=== PATIENT | female | born 1965 | race Caucasian/White ===

== ENCOUNTER 2020-08-28 09:52 | Inpatient (IN) | payer OTHER, MEDICARE ==
[~2020-08-28] VITALS: Ht 165.1 cm; Wt 86.2 kg
[2020-08-28 10:48] LABS: BASOPHILS % (AUTO) 0.7 % (0.0-2.0); EOSINOPHILS % (AUTO) 2.7 % (0.0-3.0); HEMATOCRIT 47.1 % (37.0-47.0); HEMOGLOBIN 15.5 G/DL (12.0-16.0); LYMPHOCYTES % (AUTO) 31.4 % (20.0-45.0); MEAN CORPUSCULAR VOLUME 92 FL (80-99); MONOCYTES % (AUTO) 4.8 % (1.0-10.0); NEUTROPHILS % (AUTO) 60.3 % (45.0-75.0); PLATELET COUNT 180 K/UL (150-450); RED BLOOD COUNT 5.12 M/UL (4.20-5.40); WHITE BLOOD COUNT 8.1 K/UL (4.8-10.8)
[2020-08-28 10:55] LABS: ANION GAP 11 mmol/L (5-15); BLOOD UREA NITROGEN 11 mg/dL (7-18); CALCIUM 9.9 MG/DL (8.5-10.1); CARBON DIOXIDE 23 MMOL/L (21-32); CHLORIDE 98 MMOL/L (98-107); CREATININE 0.8 MG/DL (0.55-1.30); INR 1.3 (0.9-1.1); SODIUM 132 MMOL/L (136-145)
[2020-08-28 11:00] LABS: ALANINE AMINOTRANSFERASE 35 U/L (12-78); ALKALINE PHOSPHATASE 83 U/L (46-116); ASPARTATE AMINO TRANSFERASE 31 U/L (15-37)
--- NOTE | 2020-08-28 11:06 | Emergency Room Report ---
History of Present Illness General Chief Complaint: Abdominal Pain Source: Patient Present Illness HPI 54-year-old female referred to ED for evaluation. Presenting with abdominal pain. History of BC IR pouch x25 years. Has been self intubating normally 3 times a day but states that for the last several days she has been requiring 15+ intubations a day. Concerned about a bowel obstruction. Pain is dull, 7 out of 10, nonradiating. Denies fevers or chills. Denies nausea or vomiting. No other aggravating relieving factors. 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: No Patient History Past Medical History: none Past Surgical History: other - BCIR pouch Pertinent Family History: none Social History: Denies: smoking, alcohol use, drug use Now: No Immunizations: UTD Reviewed Nursing Documentation: PMH: Agreed; PSxH: Agreed Review of Systems All Other Systems: negative except mentioned in HPI Physical Exam Vital Signs Date Time Temp Pulse Resp B/P (MAP) Pulse Ox O2 Delivery O2 Flow Rate FiO2 08/28/20 10:00 98.2 82 18 160/90 (113) 98 Room Air Sp02 EP Interpretation: reviewed, normal General Appearance: no apparent distress, alert, GCS 15, non-toxic Head: normocephalic, atraumatic Eyes: bilateral eye normal inspection, bilateral eye PERRL ENT: hearing grossly normal, normal pharynx, no angioedema, normal voice Neck: full range of motion, supple/symm/no masses Respiratory: chest non-tender, lungs clear, normal breath sounds, speaking full sentences Cardiovascular #1: regular rate, rhythm, no edema Cardiovascular #2: 2+ carotid (R), 2+ carotid (L), 2+ radial (R), 2+ radial (L), 2+ dorsalis pedis (R), 2+ dorsalis pedis (L) Gastrointestinal: normal bowel sounds, soft, non-distended, no guarding, no rebound, other - BCIR pouch RLQ pink patent Rectal: deferred Genitourinary: normal inspection, no CVA tenderness Musculoskeletal: back normal, normal range of motion, gait/station normal, non- tender Neurologic: alert, motor strength/tone normal, oriented x3, sensory intact, responsive, speech normal Psychiatric: judgement/insight normal, memory normal, mood/affect normal, no suicidal/homicidal ideation Reflexes: 3+ bicep (R), 3+ bicep (L), 3+ tricep (R), 3+ tricep (L), 3+ knee (R), 3+ knee (L) Skin: no rash Lymphatic: no adenopathy Medical Decision Making Diagnostic Impression: Primary Impression: Abdominal pain Qualified Codes: R10.84 - Generalized abdominal pain ER Course Hospital Course 54-year-old female presents with abdominal pain. History of BCIR pouch Differential diagnoses include: BPH, cystitis, pyelonephritis, kidney stone Clinical course Patient placed on stretcher. match up person. After initial history and physical I ordered labs, IV fluids, UA Labs - no leukocytosis, Hb/Hct stable. electrolytes ok rapid COVID negative Case discussed with Dr. Mccain and he agreed to accept the patient to his service for further care and support I feel this is a highly complex case requiring extensive working including EKG/Rhythm strip, Xray/CT/US, Blood/urine lab work, repeat exams while in ED, and administration of strong opiates/narcotics for pain control, admission to hospital or close patient follow up. Diagnosis - abdominal pain Patient admitted to floor in serious condition Laboratory Tests Test 08/28/20 10:15 08/28/20 11:30 White Blood Count 8.1 K/UL (4.8-10.8) Red Blood Count 5.12 M/UL (4.20-5.40) Hemoglobin 15.5 G/DL (12.0-16.0) Hematocrit 47.1 % (37.0-47.0) H Mean Corpuscular Volume 92 FL (80-99) Mean Corpuscular Hemoglobin 30.2 PG (27.0-31.0) Mean Corpuscular Hemoglobin Concent 32.8 G/DL (32.0-36.0) Red Cell Distribution Width 13.0 % (11.6-14.8) Platelet Count 180 K/UL (150-450) Mean Platelet Volume 7.7 FL (6.5-10.1) Neutrophils (%) (Auto) 60.3 % (45.0-75.0) Lymphocytes (%) (Auto) 31.4 % (20.0-45.0) Monocytes (%) (Auto) 4.8 % (1.0-10.0) Eosinophils (%) (Auto) 2.7 % (0.0-3.0) Basophils (%) (Auto) 0.7 % (0.0-2.0) Prothrombin Time 14.3 SEC (9.30-11.50) H Prothromb Time International Ratio 1.3 (0.9-1.1) H Activated Partial Thromboplast Time 23 SEC (23-33) Sodium Level 132 MMOL/L (136-145) L Potassium Level 4.0 MMOL/L (3.5-5.1) Chloride Level 98 MMOL/L (98-107) Carbon Dioxide Level 23 MMOL/L (21-32) Anion Gap 11 mmol/L (5-15) Blood Urea Nitrogen 11 mg/dL (7-18) Creatinine 0.8 MG/DL (0.55-1.30) Estimat Glomerular Filtration Rate > 60 mL/min (>60) Glucose Level 178 MG/DL (74-106) H Calcium Level 9.9 MG/DL (8.5-10.1) Total Bilirubin 1.0 MG/DL (0.2-1.0) Aspartate Amino Transf (AST/SGOT) 31 U/L (15-37) Alanine Aminotransferase (ALT/SGPT) 35 U/L (12-78) Alkaline Phosphatase 83 U/L (46-116) Total Protein 8.2 G/DL (6.4-8.2) Albumin 4.0 G/DL (3.4-5.0) Globulin 4.2 g/dL Albumin/Globulin Ratio 1.0 (1.0-2.7) Lipase 220 U/L (73-393) Urine Color Pending Urine Appearance Pending Urine pH Pending Urine Specific [place] Pending Urine Protein Pending Urine Glucose (UA) Pending Urine Ketones Pending Urine Blood Pending Urine Nitrite Pending Urine Bilirubin Pending Urine Urobilinogen Pending Urine Leukocyte Esterase Pending Last Vital Signs Date Time Temp Pulse Resp B/P (MAP) Pulse Ox O2 Delivery O2 Flow Rate FiO2 08/28/20 10:14 78 18 08/28/20 10:00 98.2 160/90 (113) 98 Room Air Status: improved Disposition: ADMITTED INPATIENT Condition: Serious Referrals: Fidel Mccain MD (PCP) Sergio Thomas MD Aug 28, 2020 11:06
[2020-08-28 11:07] VITALS: BP 152/76
--- NOTE | 2020-08-28 11:41 | NUR ---
report given to adrian patient is to be transferd to room 305
[2020-08-28 11:59] LABS: APPEARANCE,URINE CLEAR; BILIRUBIN, URINE NEGATIVE (NEGATIVE); COLOR,URINE PALE YELLOW; GLUCOSE, URINE (UA) NEGATIVE (NEGATIVE); KETONES,URINE 2+ (NEGATIVE); LEUKOCYTE ESTERASE ,URINE NEGATIVE (NEGATIVE); NITRITE,URINE NEGATIVE (NEGATIVE); PH,URINE 5 (4.5-8.0); PROTEIN,URINE NEGATIVE (NEGATIVE); UROBILINOGEN,URINE NORMAL MG/DL (0.0-1.0)
--- NOTE | 2020-08-28 12:09 | NUR ---
CASE MANAGEMENT:INITIAL REVIEW 54 YR OLD FEMALE FROM HOME CC;ABDOMINAL PAIN PSxHx;BCIR POUCH X25 YRS SI;ABDOMINAL PAIN 98.2 82 18 160/90 95% ON RA NA- 132 GLU+ 178 PT+ 14.3 INR+ 1.3 COVID RAPID ~ NEGATIVE TYPE AND CROSS IS;IVF NS BOLUS ADMITTED TO MED SURG MED SURG STATUS DCP;PENDING HOSPITAL STAY
--- NOTE | 2020-08-28 12:15 | NUR ---
NURSE NOTES: Received report from Dulce LEE, patent a/a/o x4 laying in bed with no signs of distress or other issues at this time. IV on the right wrist gauge #22. RN will enter new order and carry on as indicated by Dr. Mccain. I will f/u as needed.
[2020-08-28] MEDS ORDERED: Phytonadione 10 MG in D5W 55 ML IVPB SCH (12:32)
[2020-08-28] MEDS ORDERED: Heparin1,000 units/500ml Premix(Conc:2 units/ml) IV PRN (12:42)
[2020-08-28] MEDS ORDERED: Lidocaine 1% Plain 30 ml INJ PRN (12:42)
[2020-08-28] MEDS ORDERED: Omnipaque-300 100ml vial INJ PRN (12:45)
[2020-08-28] MEDS ORDERED: PROGESTERONE200 MG PO (14:48)
[2020-08-28] MEDS ORDERED: ARMOUR THYROID30 MG ORAL (14:48)
[2020-08-28] MEDS ORDERED: CLONAZEPAM1 MG PO (14:48)
[2020-08-28] MEDS ORDERED: BELSOMRA15 MG PO (14:48)
--- NOTE | 2020-08-28 14:53 | NUR ---
RADIOLOGY DEPT., CHEST X-RAY DONE.-P.DYE
--- NOTE | 2020-08-28 15:04 | General Progress Note ---
Progress Note Progress Note H&P dictated. Admitted from ER with recent history of left side abdominal pain with nausea with meals, improved with liquid diet but pain persists. Has undergone multiple abdominal operations including proctocolectomy for Ulcerative Colitis,and creation of a Renee Continent Ileostomy 25 years ago with a revision 10 years ago. Usually intubates to evacuate stool 3 x daily but now feels ongoing pressure/pain in abdomen so intubates 10-15 times daily with often no output of stool or gas. Also S/P sleeve gastrectomy (5' 4" and was 228 lbs now 160 lbs) and in July 2019 cholecystectomy Abdomen mildly distended, long midline scar, Renee pouch stoma low in RLQ with reducible 4x5cm parastomal hernia just superior to stoma Labs OK but Na 132 and PT 14.3 - will give Vit K 10mg IV Imp: Partial Small Bowel Obstruction R/O stenosis of afferent bowel and Renee pouch, R/O adhesions with partial SBO Plan: Insert indwelling catheter to Renee Pouch to continuous drainage NPO, IV fluids STAT CT scan abd+pelvis with oval and IV contrast Will need Renee continent ileostomy pouch endoscopy, possible pouchogram XRay, and likely laparotomy to relieve her partial obstruction Fidel Mccain MD Aug 28, 2020 15:04
--- NOTE | 2020-08-28 15:24 | Diagnostic Imaging Report ---
Indication: Cough Technique: One view of the chest Comparison: none Findings: Lungs and pleural spaces are clear. Heart size is normal. Impression: No acute process
[2020-08-28 16:00] VITALS: BP 141/90
[2020-08-28] MEDS: D5 1/2NS w/KCl 20mEq 1,000 ML IV SCH (16:38)
--- NOTE | 2020-08-28 16:50 | Diagnostic Imaging Report ---
Clinical Indication: Abdominal pain Technique: Patient ingested oral contrast. IV administration nonionic contrast. Venous phase spiral acquisition obtained through the abdomen and pelvis. Multiplanar reconstructions were generated. Total dose length product 408 mGycm. CTDIvol(s) 7 mGy. Dose reduction achieved using automated exposure control Comparison: none Findings: There is a right lower quadrant continent ileostomy. Contrast is seen within the ileostomy pouch as well as within the catheter. The catheter is positioned well, deep within the ileostomy, tip well beyond the nipple. No small bowel distention. No free or loculated intraperitoneal gas or fluid is evident. Patient is status post near total colectomy, with a small Martha pouch still present. The patient is status post gastric surgery, which appears to be prior gastric sleeve surgery. There is mild wall thickening of the distal esophagus. There is suggestion of a small hiatal hernia. The liver is unremarkable. The gallbladder has been removed. There is no biliary ductal dilatation. The pancreas is unremarkable. Spleen demonstrates a subcentimeter low attenuation lesion centrally. The adrenals are unremarkable. The kidneys are unremarkable. No renal or ureteral calculi, hydronephrosis, nor hydroureter. The bladder is unremarkable. Prominent nodes are seen in the mesenteric root inferiorly There is a cystic mass in the pelvis, overall dimensions approximately 8.1 x 4.6 x 5.1 cm. This consists of 2 larger cysts by a septation and a smaller cyst. Wall is mostly imperceptible, but some portion of a perceptible wall is seen at the junction of the 2 larger cysts. The uterus is absent and there is no evidence of a left ovary. The included lung bases are clear. The bones are unremarkable Impression: Postsurgical changes, as described, with evidence of near total colectomy and right lower quadrant continent ileostomy. No evidence of bowel obstruction, ileostomy dysfunction, or abscess Cystic mass within the right side of the pelvis, possibly a right ovarian cystic lesion. The possibility of cystic neoplasm should be considered. Alternatively, this could represent a postoperative process such as a lymphocele. Further evaluation with ultrasound and gynecological evaluation is recommended if this has not been worked up previously. Mild esophageal wall thickening, could indicate esophagitis. There is also small hiatal hernia Other postsurgical changes as described, including prior cholecystectomy, hysterectomy, and gastric sleeve surgery Prominent mesenteric root nodes, nonspecific Findings discussed by phone with Dr. Schiller at the time of interpretation The CT scanner at [facility] is accredited by the [employer] and the scans are performed using protocols designed to limit radiation exposure to as low as reasonably achievable to attain images of sufficient resolution adequate for diagnostic evaluation.
[2020-08-28] MEDS ORDERED: HYDROmorphone 1mg/ml Carpuject IVP PRN (17:15)
[2020-08-28] MEDS ORDERED: HYDROcodone/Acetamin 5/325 tab ORAL PRN (17:15)
[2020-08-28] MEDS ORDERED: LORazepam 1mg tab ORAL PRN (17:15)
[2020-08-28] MEDS ORDERED: LORazepam 1mg tab SL PRN (17:15)
--- NOTE | 2020-08-28 17:40 | NUR ---
NURSE HAND-OFF: Important Events on Shift: new admit Patient Status: stable/ full code Diet: NPO X ice chips and meds Pending Orders: Pending Results/Labs:am labs Pending MD notification:[] Latest Vital Signs: Temperature 98.2 , Pulse 75 , B/P 141 /90 , Respiratory Rate 18 , O2 SAT 97 , Room Air, O2 Flow Rate . Vital Sign Comment: stable Latest Dumont Fall Score: 20 Fall Risk: Low Risk Safety Measures: Call light Within Reach, Bed Alarm Zone 1, Side Rails Side Rails x2, Bed position Low and Locked. Fall Precautions: steady gait Patient Fall Education Report given to Alexys LEE, patient in stable condition. - pt was able to ambulate with steady gait - ileostomy draining to gravity, total put put during my shift 550-60= 490 - CT abd done - CXR done - EKG done - UA done pending PICC line placement and postendoscopy in the AM - consent signed for PICC line placement
[2020-08-28] MEDS: HYDROmorphone 1mg/ml Carpuject SUBQ PRN ×2 (17:51→22:50)
[2020-08-28 20:00] VITALS: BP 149/82
--- NOTE | 2020-08-28 20:00 | NUR ---
NURSE NOTES: Patient in bed, awake, alert x 4. Bed in low and locked position. Provided safe environment. Kept clean and comfortable. Iv site noted, iv fluid is infusing as ordered. Skin is warm and dry to touch. No complaint of pain or discomfort at the moment. Patient is ambulatory. nothing by mouth except ice chips and medications. Abdomen is soft and non distended. Respiration is even and unlabored, room air. BCIR, will be flushed, intact. Call light is at bedside. Will continue plan of care.
[2020-08-28] MEDS: Dyna-Hex 2% Top Sol 2oz TOPIC SCH (20:36)
--- NOTE | 2020-08-28 21:00 | NUR ---
NURSE NOTES: Patient complained of nausea, given PRN medication as ordered. Will follow up.
[2020-08-28 23:33] VITALS: BP 117/72
[2020-08-29] MEDS: D5 1/2NS w/KCl 20mEq 1,000 ML IV SCH ×3 (00:02→20:26)
[2020-08-29] MEDS: HYDROmorphone 1mg/ml Carpuject SUBQ PRN (03:35)
--- NOTE | 2020-08-29 03:48 | NUR ---
NURSE NOTES: Patient complained of pain and nausea, given PRN medication as ordered. Will reassess patient. Call light is at bedside. Ileo flushed. Iv site noted, intact, iv fluid is infusing as ordered.
[2020-08-29 03:50] VITALS: BP 148/82
[2020-08-29 05:45] LABS: EOSINOPHILS % (AUTO) 2.8 % (0.0-3.0); HEMATOCRIT 40.3 % (37.0-47.0); HEMOGLOBIN 13.4 G/DL (12.0-16.0); LYMPHOCYTES % (AUTO) 30.1 % (20.0-45.0); MEAN CORPUSCULAR VOLUME 92 FL (80-99); PLATELET COUNT 312 K/UL (150-450); RED BLOOD COUNT 4.36 M/UL (4.20-5.40); WHITE BLOOD COUNT 7.1 K/UL (4.8-10.8)
[2020-08-29 05:58] LABS: INR 0.9 (0.9-1.1)
[2020-08-29 06:30] LABS: ALANINE AMINOTRANSFERASE 32 U/L (12-78); ALBUMIN 3.6 G/DL (3.4-5.0); ALBUMIN/GLOBULIN RATIO 0.9 (1.0-2.7); ALKALINE PHOSPHATASE 78 U/L (46-116); ANION GAP 7 mmol/L (5-15); ASPARTATE AMINO TRANSFERASE 22 U/L (15-37); BILIRUBIN,TOTAL 0.8 MG/DL (0.2-1.0); BLOOD UREA NITROGEN 9 mg/dL (7-18); CALCIUM 8.8 MG/DL (8.5-10.1); CARBON DIOXIDE 26 MMOL/L (21-32); CHLORIDE 100 MMOL/L (98-107); CREATININE 0.9 MG/DL (0.55-1.30); FERRITIN 175 NG/ML (8-388); POTASSIUM 4.1 MMOL/L (3.5-5.1); SODIUM 133 MMOL/L (136-145)
[2020-08-29 06:45] LABS: % IRON SATURATION 29 % (15-50); IRON 98 ug/dL (50-175); TOTAL IRON BINDING CAPACITY 333 ug/dL (250-450)
--- NOTE | 2020-08-29 07:30 | NUR ---
NURSE NOTES: Patient lying in bed awake. Complain of nausea and will administer medication as ordered. IV dressing intact and dry. Ileostomy catheter patent and draining well. Bed lowest position and side rails up. Call light within reach. Will continue to monitor.
[2020-08-29 08:00] VITALS: BP 154/91
[2020-08-29] MEDS ORDERED: PCA HYDROmorphone 1mg/ml 30 ML IV PRN (08:15)
[2020-08-29] MEDS ORDERED: Rate Change PCA 1 Each MISC PRN (08:15)
[2020-08-29] MEDS ORDERED: DiphenhydrAMINE 50mg/ml Inj IVP PRN (08:15)
[2020-08-29] MEDS ORDERED: PCA Education Pamphlet MISC ONE (08:15)
[2020-08-29] MEDS ORDERED: Naloxone 0.4mg/ml Inj IVP PRN (08:15)
--- NOTE | 2020-08-29 08:20 | General Progress Note ---
Progress Note Progress Note AVSS Continued abdominal pain requiring Dilaudid SQ overnight with nausea Abdomen soft, Renee pouch indwelling catheter is draining well Urine 1300 BCIR ileo 810 (contrast from CT scan) Hgb 13.4 PT now normal 10.5 Iron 98 Ferritin 175 B12 and folate okay Albumin 3.6 CT scan reveals right sided cystic pelvic mass about 8x4x5 cm. "incidental finding" per radiologist Absent uterus and left ovary - right not seen - she has had SUJATA + BSO in the past. Imp: Abdominal pain and nausea with meals ? etiology Cystic pelvic mass R/O neoplasm vs. loculated post-op fluid from multiple operations or lymphocele Plan: Ultrasound: abdomen, pelvis and trans-vaginal Renee pouch endoscopy today (no anesthesia) Pouchogram XRay with retrograde small bowel series Dual lumen PICC line today (very poor venous access) dilaudid SMT TECHNICIAN demand dosing only continue NPO and continuous drainage of Renee pouch Fidel Mccain MD Aug 29, 2020 08:20
[2020-08-29] MEDS ORDERED: SPIRONOLACTONE ORAL SCH (09:00)
--- NOTE | 2020-08-29 10:33 | Diagnostic Imaging Report ---
Indication: Abdominal pain. Technique: [place] scale and duplex Doppler imaging of the abdomen. Comparison: CT the abdomen and pelvis 08/28/2020 Findings: Imaged portions of the pancreatic head unremarkable in appearance. The body and tail not well seen sonographically. Hepatic contour is smooth. No focal hepatic mass lesion is appreciated on this exam. Imaged hepatic veins are patent. Main portal vein is patent with normal direction of flow. Liver demonstrates mildly increased echogenicity. The patient is status post cholecystectomy. There is no intrahepatic or extrahepatic biliary duct dilatation. Common bile duct measures 5 mm diameter. Kidneys demonstrate normal echogenicity. There is no hydronephrosis or sonographically for renal stone. Spleen is normal in size. A 6 mm uniformly echogenic structure is noted within the spleen which may represent a small hemangioma. Imaged portions of the abdominal aorta are normal in caliber. IVC is unremarkable in appearance. IMPRESSION: Mildly increased hepatic echogenicity suggesting mild steatosis. Status post cholecystectomy. No biliary ductal dilatation. Subcentimeter splenic hemangioma.
--- NOTE | 2020-08-29 10:33 | NUR ---
CASE MANAGEMENT:REVIEW SI;COUCH POUCH MALFUNCTION 97.6 77 18 154/91 94% ON RA NA- 133 GLU+ 227 IS;VENOFER IV HS COMPAZINE IV KLONOPIN PO QD ZOFRAN IV Q4 PRN IVF D5W @ 100 ML/HR DILAUDID SQ Q4 PRN MED SURG STATUS DCP;FROM HOME PLAN;COUCH POUCH ENDOSCOPY
--- NOTE | 2020-08-29 11:59 | Pre-op HX & Phy Repo 2 SIG ---
DATE OF ADMISSION: 08/28/2020 Admitted from the emergency room August 28, 2020 for abdominal pain, possible malfunctioning Renee continent ileostomy. HISTORY OF PRESENT ILLNESS: The patient has past history of ulcerative colitis and has previously undergone total colectomy with creation of a Renee continent ileostomy as well as revisions and bowel resection for obstruction as well as total abdominal hysterectomy and bilateral salpingo-oophorectomy who has done well with her Renee pouch for many years intubating three times a day to evacuate stool and gas. For the past two months, she has had progressive pain in the left side of her abdomen and most recently developed nausea with meals and had to start on liquid only diet. She now tries to intubate 10 to 15 times a day to get relief but often there was no output either stool or gas. The clinical picture of one is one of a partial bowel obstruction in conjunction with the specialized Renee type of K[place] pouch continent ileostomy. The patient presented here in [place] for definitive diagnosis, treatment, and likely surgery. The patient has only had pouchitis 5 times in the past 25 years and her symptoms are not consistent with that diagnosis. She has no difficulty with intubation and no incontinence. All of her operations will be listed in detail at the end of this dictation. PAST MEDICAL HISTORY: MEDICATIONS: Thyroid, progesterone, clonazepam at night, Belsomra at night, spironolactone liquid for acne. ALLERGIES: Penicillin causes anaphylaxis. Morphine causes anaphylaxis. She has tolerated Dilaudid and Demerol without difficulty. OPERATIONS: In addition to the list at the end of this dictation in 2017, she underwent thyroidectomy. PHYSICAL EXAMINATION: VITAL SIGNS: The patient is 5 feet 4 inches, 160 pounds. Vital signs within normal limits. GENERAL: She complains of pain, but is not in any acute distress. HEENT: Within normal limits. LUNGS: Clear. HEART: Regular rhythm. BREASTS: Without masses. ABDOMEN: Soft with a long left midline and partially paramedian incision from epigastrium to pubis. Stoma of the Renee continent ileostomy is low in the right lower quadrant and there is a parastomal hernia 4 x 5 cm just cephalad to the stoma orifice. There is no evidence of incisional hernia. PELVIC: Status post hysterectomy. RECTAL: Status post proctectomy. EXTREMITIES: Without edema. Pulses 2+ femoral to pedal bilaterally. NEUROLOGIC: Physiologic. IMPRESSION: 1. Abdominal pain, likely partial small bowel obstruction from adhesions or due to a stricture at the junction of the small bowel with her Renee continent ileostomy pouch. 2. History of ulcerative colitis. 3. STATUS POST MULTIPLE ABDOMINAL OPERATIONS: 3.1. 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 3.2. Abdomino-perineal proctectomy and creation of Renee type of Kock pouch continent ileostomy August 1995. 3.3. Total abdominal hysterectomy and bilateral salpingo-oophorectomy with repair of ventral hernia in 2002. 3.4. 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 3.5. section x2. 3.6. Sleeve gastrectomy for morbid obesity in 2018 (Her weight was 228 pounds) 3.7. Cholecystectomy in July 2019. (All of these operations were done in [place] or other states) PLAN: The patient will be admitted to the hospital with NPO and IV fluids. She will need a PICC line because of very difficult peripheral venous access. She will undergo CT scan of abdomen and pelvis with oral and IV contrast. An indwelling catheter will be placed into her Renee continent ileostomy and connected to continuous gravity drainage. Her prothrombin time is prolonged and she will receive vitamin K intravenously. After hydration, repeat laboratory studies will be obtained to see what her baseline is. She will need to undergo endoscopy of her Renee continent ileostomy pouch and further workup based on the studies. She will also undergo a pouchogram x-ray with retrograde small bowel series. I have had a full discussion with the patient that she may likely need surgery since her symptoms are typical for intermittent or partial small bowel obstruction, which could be due to a variety of causes including adhesions that may not be revealed on CT scan. Fidel Mccain M.D. DR: Abbi JOB#: [id number] CC: MADDI
[2020-08-29 12:00] VITALS: BP 106/66
--- NOTE | 2020-08-29 13:22 | Pre-Procedure Note/Attestation ---
Pre-Procedure Note/Attestation Complete Prior to Procedure Planned Procedure: not applicable Procedure Narrative: Víctor continent ileostomy pouch endoscopy Indications for Procedure Pre-Operative Diagnosis: abdominal pain Attestation I attest that I discussed the nature of the procedure; its benefits; risks and complications; and alternatives (and the risks and benefits of such alternat almas), prior to the procedure, with the patient (or the patient's legal security representative). I attest that, if there was a reasonable possibility of needing a blood transfusion, the patient (or the patient's legal security representative) was given the [facility] Health Services standardized written summary, pursuant to the [place] Blood Safety Act ([place] Health and Safety Code # 1645, as amended). I attest that I re-evaluated the patient just prior to the surgery and that there has been no change in the patient's H&P, except as documented below:none Fidel Mccain MD Aug 29, 2020 13:22
--- NOTE | 2020-08-29 13:35 | NUR ---
NURSE NOTES: Patient off unit for procedure in stable condition.
--- NOTE | 2020-08-29 13:54 | Brief Operative Note ---
Immediate Post Operative Note Operative Note Pre-op Diagnosis: abdominal pain Procedure: Renee continent ileostomy pouch endoscopy Post-op Diagnosis: same Post-op Diagnosis: same as pre-op Findings: other - normal pouch, slightly redundant access/valve segment Surgeon: jarek Anesthesia: other - none Specimen: none Complications: none Condition: stable Fluids: none Estimated Blood Loss: none Drains: other - 28 Sánchez to Renee Pouch Implant(s) used?: No Fidel Mccain MD Aug 29, 2020 13:54
--- NOTE | 2020-08-29 14:21 | Pre-Procedure Note/Attestation ---
Pre-Procedure Note/Attestation Complete Prior to Procedure Planned Procedure: not applicable Procedure Narrative: PICC Indications for Procedure Pre-Operative Diagnosis: needs access Attestation I attest that I discussed the nature of the procedure; its benefits; risks and complications; and alternatives (and the risks and benefits of such alternatives), prior to the procedure, with the patient (or the patient's legal loss prevention representative). I attest that, if there was a reasonable possibility of needing a blood transfu melissa, the patient (or the patient's legal loss prevention representative) was given the [facility] Services standardized written summary, pursuant to the [place] Blood Safety Act ([place] Health and Safety Code # 1645, as amended). I attest that I re-evaluated the patient just prior to the surgery and that there has been no change in the patient's H&P, except as documented below: Walter Kelsey MD Aug 29, 2020 14:21
--- NOTE | 2020-08-29 14:22 | Brief Operative Note ---
Immediate Post Operative Note Operative Note Pre-op Diagnosis: needs access Procedure: PICC Post-op Diagnosis: same as pre-op Surgeon: Khai Hastings Anesthesia: local Specimen: none Complications: none Fluids: none Estimated Blood Loss: none Implant(s) used?: No Walter Hastings MD Aug 29, 2020 14:22
--- NOTE | 2020-08-29 14:38 | NUR ---
RADIOLOGY NOTE: LEFT UPPER PICC LINE PLACEMENT BY DR. GALA ARRIOLA AT 1409 HRS. FA
--- NOTE | 2020-08-29 14:45 | Procedure Note ---
DATE OF PROCEDURE: 08/29/2020 ENDOSCOPIST: Fidel Mccain MD. ANESTHESIA: None. SEDATION: None. PRE-ENDOSCOPY DIAGNOSES: 1. Abdominal pain. 2. 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 POST-ENDOSCOPY DIAGNOSES: 1. Abdominal pain. 2. 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 ENDOSCOPY PERFORMED: Renee continent ileostomy pouch endoscopy. FINDINGS: A mildly redundant access and valve segment with a normal pouch and normal valve on retroflex views with inability to enter the afferent bowel due to torquing. DESCRIPTION OF PROCEDURE: The patient was positioned supine in the GI lab without any anesthesia or sedation given or required. The pouch was flushed through the indwelling pouch catheter and then the catheter removed. Using a GIF-P140 endoscope, the stoma was entered and there was a straight tract with some redundant folds in the distal segment until the pouch was entered with the distance from the stoma to the tip of the valve approximately 12 cm, somewhat redundant in this patient. The pouch was distensible and the mucosa appeared completely normal throughout. Retroflexed views revealed a circumferentially well-formed nipple valve. Due to torquing, I was unable to enter the afferent bowel. The patient will undergo pouchogram x-ray after this endoscopy. Following removal of the endoscope with withdrawal views confirming the above findings, I was able to readily insert a 28-St Lucian Sánchez catheter into the pouch and connected it to a continuous gravity drainage bag. The patient tolerated the endoscopy well. Fidel Mccain M.D. DR: JUANITA JOB#: [id number] CC: MADDI
--- NOTE | 2020-08-29 14:58 | NUR ---
NURSE NOTES: Patient came back from procedure in stable condition. PICC line dressing intact and dry. Will continue to monitor.
[2020-08-29 16:00] VITALS: BP 119/65
--- NOTE | 2020-08-29 16:56 | Diagnostic Imaging Report ---
Indications: Needs long-term IV access Technique: Ultrasound confirms patent compressible left basilic vein. Total sterile technique, including sterile probe cover and sterile gel, hat, mask, sterile gown, large sterile drape, and preparation with 2% chlorhexidine utilized. Local anesthesia with 1% lidocaine. Under real-time ultrasound guidance with real-time visualization of the needle entering the vein, puncture vein using 21-gauge needle, documented and archived, passage 0.018 guidewire under direct fluoroscopy, which was used to determine appropriate catheter length, exchange for 4 Maltese peel-away sheath. 4 Maltese Bard dual-lumen power PICC cut to 40 cm. It was inserted through the peel-away sheath. Peel-away sheath and guidewire removed. Catheter fixed to the skin. Both catheter ports aspirated and flushed. Patient tolerated procedure well, without immediate complication. Digital radiograph documents satisfactory catheter tip position, at the cavoatrial junction. Total fluoroscopy time 21.5 seconds. Total dose area product 0.19682 mGym2 Total number of images: 1 Impression: Successful placement of left arm PICC under sonographic and fluoroscopic guidance, as described above.
--- NOTE | 2020-08-29 17:00 | Diagnostic Imaging Report ---
Indication: Abdominal pain Technique: Under gravity, contrast injected into pre-existing Sánchez catheter within the continent nephrostomy pouch, and fluoroscopy utilized. Spot images and saved fluoroscopy loops were obtained Total fluoroscopy time 181 seconds. Total dose area product 1.69 mGym2 Number of images: 36 Comparison: Reference made to CT scan 08/28/2020 Findings: Contrast easily fills the continent ileostomy pouch, which appears unremarkable in configuration. Once the pouch is fairly distended, contrast was seen to reflux into the apparent small bowel. The anchor small bowel is normal in caliber. The contrast drained easily from the pouch which is nearly empty on the postdrainage images. Impression: Unremarkable continent ileostomy pouch study
--- NOTE | 2020-08-29 17:19 | Diagnostic Imaging Report ---
Indication: Abdominal pain, evaluation of pelvic cystic lesion described on recent CT scan Technique: Transabdominal and transvaginal images of the pelvis Comparison: CT scan dated 08/28/2020 Findings: There is an anechoic cystic mass in the pelvis to the right of midline, which measures overall 8 x 5 x 5 cm in diameter. Individual cystic components are best appreciated on transvaginal images, and appearance is similar to that seen on CT. Patient is status post supracervical hysterectomy with residual cervix visualized. Neither ovary is demonstrated, related to known history of prior bilateral oophorectomy Impression: 8 x 5 x 5 cm anechoic cystic mass in the pelvis to the right midline, corresponding to findings reported on recent CT scan. Unlikely to represent a cystic ovarian neoplasm, given clinical history of remote hysterectomy and bilateral oophorectomy stated by referring physician. Could represent a lymphocele, versus a process such as an enteric duplication cyst. Postsurgical changes as described
[2020-08-29] MEDS: SPIRONOLACTONE ORAL SCH (17:33)
[2020-08-29] MEDS: PCA shift volume MISC SCH (19:14)
--- NOTE | 2020-08-29 19:25 | NUR ---
NURSE HAND-OFF: Important Events on Shift:DRIER AND EVAPORATOR OPERATOR started, US abd / US pelvs / Pouchogram / Endoscopy / PICC line done Patient Status: Stable Diet: NPO Pending Orders: N/A Pending Results/Labs: CBC, CMP, Mg, Phos on 08/30 Pending MD notification:N/A Latest Vital Signs: Temperature 97.3 , Pulse 72 , B/P 119 /65 , Respiratory Rate 17 , O2 SAT 96 , Room Air, O2 Flow Rate . Vital Sign Comment: Stable Latest Dumont Fall Score: 35 Fall Risk: Medium Risk Safety Measures: Call light Within Reach, Bed Alarm Zone 1, Side Rails Side Rails x2, Bed position Low and Locked. Fall Precautions: Yellow Socks Door Sign Patient Fall Education Report given to Stuart LEE. Patient in stable condition.
--- NOTE | 2020-08-29 19:45 | NUR ---
NURSE NOTES: Received report from Sanjay LEE. Patient is awake, alert, and oriented x4. On room air, breathing is even and unlabored. No complains of pain or distress noted. Ileostomy intact and draining well by gravity. Will flush 20cc q3h. PICC line left UA intact and patent with no bleeding noted. IVF running as ordered. AN/SYQ 13 NAV/C2 OPERATOR pump checked. Bed low and locked. Call light within reach.
[2020-08-29 20:00] VITALS: BP 118/68
[2020-08-29] MEDS ORDERED: Dyna-Hex 2% Top Sol 2oz TOPIC SCH (20:00)
[2020-08-29] MEDS: Dyna-Hex 2% Top Sol 2oz TOPIC SCH (20:26)
[2020-08-29] MEDS: Iron Sucrose 100 MG in NS 55 ML IVPB SCH (20:27)
[2020-08-30] VITALS (7 sets, daily range): BP systolic 104–148; BP diastolic 62–81
[2020-08-30 05:37] LABS: BASOPHILS % (AUTO) 0.9 % (0.0-2.0); EOSINOPHILS % (AUTO) 2.6 % (0.0-3.0); HEMATOCRIT 37.2 % (37.0-47.0); HEMOGLOBIN 12.2 G/DL (12.0-16.0); LYMPHOCYTES % (AUTO) 21.1 % (20.0-45.0); MEAN CORPUSCULAR VOLUME 93 FL (80-99); MONOCYTES % (AUTO) 5.7 % (1.0-10.0); NEUTROPHILS % (AUTO) 69.7 % (45.0-75.0); PLATELET COUNT 228 K/UL (150-450); RED BLOOD COUNT 3.99 M/UL (4.20-5.40); RED CELL DISTRIBUTION WIDTH 13.1 % (11.6-14.8); WHITE BLOOD COUNT 8.3 K/UL (4.8-10.8)
[2020-08-30] MEDS: D5 1/2NS w/KCl 20mEq 1,000 ML IV SCH ×3 (05:52→20:00)
[2020-08-30 05:54] LABS: ALANINE AMINOTRANSFERASE 22 U/L (12-78); ALBUMIN 2.9 G/DL (3.4-5.0); ALBUMIN/GLOBULIN RATIO 0.9 (1.0-2.7); ALKALINE PHOSPHATASE 61 U/L (46-116); ANION GAP 6 mmol/L (5-15); ASPARTATE AMINO TRANSFERASE 18 U/L (15-37); BILIRUBIN,TOTAL 0.4 MG/DL (0.2-1.0); BLOOD UREA NITROGEN 7 mg/dL (7-18); CALCIUM 8.2 MG/DL (8.5-10.1); CARBON DIOXIDE 27 MMOL/L (21-32); CHLORIDE 104 MMOL/L (98-107); CREATININE 0.8 MG/DL (0.55-1.30); PHOSPHORUS 1.9 MG/DL (2.5-4.9); POTASSIUM 3.7 MMOL/L (3.5-5.1); SODIUM 137 MMOL/L (136-145)
[2020-08-30] MEDS: PCA shift volume MISC SCH ×2 (07:29→19:26)
--- NOTE | 2020-08-30 07:41 | NUR ---
NURSE HAND-OFF: Important Events on Shift: SPECIAL WARFARE OPERATOR, IV therapy Patient Status: Stable Diet: NPO Pending Orders: [] Pending Results/Labs:[] Pending MD notification:[] Latest Vital Signs: Temperature 97.6 , Pulse 80 , B/P 112 /72 , Respiratory Rate 16 , O2 SAT 97 , Room Air, O2 Flow Rate . Vital Sign Comment: VS stable Latest Dumont Fall Score: 35 Fall Risk: Medium Risk Safety Measures: Call light Within Reach, Bed Alarm Zone 1, Side Rails Side Rails x2, Bed position Low and Locked. Fall Precautions: Yellow Socks Door Sign Patient Fall Education Report given to Lorri LEE.
--- NOTE | 2020-08-30 07:45 | NUR ---
NURSE NOTES: Received report from JESUS Davidson. Rounding done with outgoing nurse. Pt is a/o x 4. Denies any pain at this time with COMPUTER SYSTEMS DESIGN ANALYST dilaudid. is at bedside. D51/2NS + KCl 20meq is running @ 100ml/hr at this time via CARLITOS PICC line. PICC line dressing is dry/intact. RLQ ileostomy bag Bed in lowest position, call light within reach. Will continue to monitor.
[2020-08-30] MEDS ORDERED: DiphenhydrAMINE 50mg/ml Inj IVP PRN (08:20)
[2020-08-30] MEDS ORDERED: Rate Change PCA 1 Each MISC PRN (08:20)
[2020-08-30] MEDS ORDERED: Naloxone 0.4mg/ml Inj IVP PRN (08:20)
[2020-08-30] MEDS ORDERED: PCA HYDROmorphone 1mg/ml 30 ML IV PRN (08:20)
--- NOTE | 2020-08-30 08:42 | General Progress Note ---
Progress Note Progress Note Evaluation of LLQ pain and nausea with solid food has included CT scan, ultrasounds, and Pouchogram XRay with retrograde SBS, and pouch endoscopy - all normal except for incidental finding of loculated pelvic fluid Abdomen soft Albumin 2.9 Phos 1.9 Mg 1.8 Urine 1100 BCIR ileo 640 Imp: Abdominal pain unknown etiology, with symptoms typical for partial SBO Plan: barium UGI with small bowel series Start TPN (npo, recent limiting diet to relieve abdominal pain and nausea with meals, albumin 2.9) May need exploratory laparotomy Fidel Mccain MD Aug 30, 2020 08:42
--- NOTE | 2020-08-30 08:54 | Anethesia Preoperative Eval ---
Anesthesia Pre-op PMH/ROS General Date of Evaluation: Aug 30, 2020 Anesthesiologist: Low ASA Score: ASA 3 Mallampati Score Class I : Soft palate, uvula, fauces, pillars visible Class II: Soft palate, uvula, fauces visible Class III: Soft palate, base of uvula visible Class IV: Only hard plate visible Mallampati Classification: Class II Surgeon: Adán Diagnosis: Abd Pain Surgical Procedure: Laparotomy, Release Small Bowel Obstruction Anesthesia History: none Family History: no anesthesia problems Allergies: Coded Allergies: MORPHINE (Verified Allergy, Severe, 08/28/20) PENICILLINS (Verified Allergy, Severe, 08/28/20) Medications: see eMAR Patient NPO?: Yes Past Medical History Gastrointestinal/Genitourinary: Reports: other - Colitis Neurologic/Psychiatric: Reports: depression/anxiety Endocrine: Reports: DM Other: obesity - BMI 33 Anesthesia Pre-op Phys. Exam Physician Exam Last Vital Signs Date Time Temp Pulse Resp B/P (MAP) Pulse Ox O2 Delivery O2 Flow Rate FiO2 08/30/20 07:56 97.6 69 16 104/62 (76) 97 08/29/20 21:00 Room Air Constitutional: NAD Neurologic: CN 2-12 intact Cardiovascular: RRR Respiratory: CTA Gastrointestinal: S/NT/ND Airway Exam Mallampati Score: Class II MO: full ROM: limited Teeth: missing, intact Anesthesia Pre-op A/P Labs Hematology Test 08/30/20 05:00 White Blood Count 8.3 K/UL (4.8-10.8) Red Blood Count 3.99 M/UL (4.20-5.40) L Hemoglobin 12.2 G/DL (12.0-16.0) Hematocrit 37.2 % (37.0-47.0) Mean Corpuscular Volume 93 FL (80-99) Mean Corpuscular Hemoglobin 30.6 PG (27.0-31.0) Mean Corpuscular Hemoglobin Concent 32.8 G/DL (32.0-36.0) Red Cell Distribution Width 13.1 % (11.6-14.8) Platelet Count 228 K/UL (150-450) Mean Platelet Volume 6.9 FL (6.5-10.1) Neutrophils (%) (Auto) 69.7 % (45.0-75.0) Lymphocytes (%) (Auto) 21.1 % (20.0-45.0) Monocytes (%) (Auto) 5.7 % (1.0-10.0) Eosinophils (%) (Auto) 2.6 % (0.0-3.0) Basophils (%) (Auto) 0.9 % (0.0-2.0) Chemistry Test 08/30/20 05:00 Sodium Level 137 MMOL/L (136-145) Potassium Level 3.7 MMOL/L (3.5-5.1) Chloride Level 104 MMOL/L (98-107) Carbon Dioxide Level 27 MMOL/L (21-32) Anion Gap 6 mmol/L (5-15) Blood Urea Nitrogen 7 mg/dL (7-18) Creatinine 0.8 MG/DL (0.55-1.30) Estimat Glomerular Filtration Rate > 60 mL/min (>60) Glucose Level 203 MG/DL (74-106) H Calcium Level 8.2 MG/DL (8.5-10.1) L Phosphorus Level 1.9 MG/DL (2.5-4.9) L Magnesium Level 1.8 MG/DL (1.8-2.4) Total Bilirubin 0.4 MG/DL (0.2-1.0) Aspartate Amino Transf (AST/SGOT) 18 U/L (15-37) Alanine Aminotransferase (ALT/SGPT) 22 U/L (12-78) Alkaline Phosphatase 61 U/L (46-116) Total Protein 6.1 G/DL (6.4-8.2) L Albumin 2.9 G/DL (3.4-5.0) L Globulin 3.2 g/dL Albumin/Globulin Ratio 0.9 (1.0-2.7) L Risk Assessment & Plan Assessment: ASA 3 Plan: GA, SED, GlideScope Status Change Before Surgery: No Pre-Antibiotics Drug: Wilber Zuniga MD Aug 30, 2020 08:54
[2020-08-30] MEDS: Potassium Phosphate 15mm/250ml 250 ML IVPB SCH ×2 (09:09→14:40)
--- NOTE | 2020-08-30 09:28 | NUR ---
RD ASSESSMENT & RECOMMENDATIONS SEE CARE ACTIVITY FOR COMPLETE ASSESSMENT DAILY ESTIMATED NEEDS: Needs based on Pending surgery 59.7kg abw 25-30 kcals/kg 7790-3784 total kcals 1-2 g protein/kg 60-119 g total protein 25-30 mL/kg 1147-5889 total fluid mLs NUTRITION DIAGNOSIS: Altered GI function r/t ileostomy malfunction as evidenced by s/p endoscopy, pending possible ex lap, NPO status, TPN ordered. CURRENT DIET: NPO PARENTERAL NUTRITION RECOMMENDATIONS: D/AA Rate: 65 IL Rate: 9 Total Rate: 74 Volume: 1776 % Dextrose: 18 % AA: 5.4 Energy (kcals/kg): 1724 Protein (g/kg protein): 84 Nonprotein KCALS: 1387 GIR (mg CHO/kg/min): 2.6 % Fat KCALS: 25 NPC: N Ratio: 103:1 TPN Comment: - D18% with AA 5.4% @65ml/hr + IL20% @9ml/hr-> alll 3:1, goal of 74ml/hr. - Start rate per MD - GIR<5 - %fat <30% ADDITIONAL RECOMMENDATIONS: 1) H/o DM, will monitor BG, need for formulary change. 2) Check LFT's, lytes, BG w/ TPN 3) Obtain a standing wt Stated wt 165# vs EMR wt 175#
--- NOTE | 2020-08-30 12:40 | NUR ---
CASE MANAGEMENT:REVIEW SI;COUCH POUCH MALFUNCTION. ABD PAIN. 98.8 80 18 124/68 95% ON RA GLU+ 203 ALB- 2.9 IS;MAG SULFATE IV ONCE TPN IV VENOFER IV HS THYROID PO QD KLONOPIN PO QD IVF D5W @ 100 ML/HR MED SURG STATUS DCP;FROM HOME PLAN;barium UGI with small bowel series Start TPN (npo, recent limiting diet to relieve abdominal pain and nausea with meals, albumin 2.9) May need exploratory laparotomy
--- NOTE | 2020-08-30 16:30 | NUR ---
NURSE NOTES: Patient ambulated hallway x 2 with RN in steady gait.
[2020-08-30] MEDS: SPIRONOLACTONE ORAL SCH (18:16)
--- NOTE | 2020-08-30 19:00 | NUR ---
NURSE HAND-OFF: Important Events on Shift: Urine output: 1200ml, Ileo output: 220ml Patient Status: stable Diet: NPO Pending Orders: Upper GI w/ SB series Pending Results/Labs:n/a Pending MD notification:n/a Latest Vital Signs: Temperature 97.9 , Pulse 96 , B/P 126 /81 , Respiratory Rate 16 , O2 SAT 98 , Room Air, O2 Flow Rate . Vital Sign Comment: stable Latest Dumont Fall Score: 35 Fall Risk: Medium Risk Safety Measures: Call light Within Reach, Bed Alarm Zone 1, Side Rails Side Rails x2, Bed position Low and Locked. Fall Precautions: Yellow Socks Door Sign Patient Fall Education Report given to Stuart LEE.
--- NOTE | 2020-08-30 19:45 | NUR ---
NURSE NOTES: Received report from Lorri LEE. Patient is awake, alert, and oriented x4. On room air, breathing is even and unlabored. No complains of pain or distress noted. SKY LINE YARDER pump intact. RLQ ileo bag intact and draining well. IV left UA PICC line intact and patent with no bleeding noted. IVF running as ordered. Bed low and locked. Call light within reach.
[2020-08-30] MEDS ORDERED: Dextrose 10% 1,000 ML IV PRN (20:00)
[2020-08-30] MEDS: [UNRECOGNIZED DRUG - OTHER] IV SCH ×2 (20:32)
[2020-08-30] MEDS: TPN IV SCH ×2 (20:32)
[2020-08-30] MEDS: Dyna-Hex 2% Top Sol 2oz TOPIC SCH (20:33)
[2020-08-30] MEDS: Iron Sucrose 100 MG in NS 55 ML IVPB SCH (20:33)
[2020-08-30] MEDS ORDERED: Fat Emulsion Iv 20% 250 ML IV SCH (21:00)
[2020-08-30] MEDS: NovoLOG Insulin Flexpen SUBQ SCH (23:58)
[2020-08-31] VITALS (8 sets, daily range): BP systolic 122–147; BP diastolic 69–80
[2020-08-31] MEDS: NovoLOG Insulin Flexpen SUBQ SCH ×3 (05:48→17:38)
[2020-08-31] MEDS: PCA shift volume MISC SCH ×2 (07:00→19:00)
[2020-08-31 07:17] LABS: BASOPHILS % (AUTO) 0.8 % (0.0-2.0); EOSINOPHILS % (AUTO) 3.3 % (0.0-3.0); HEMATOCRIT 40.8 % (37.0-47.0); HEMOGLOBIN 13.7 G/DL (12.0-16.0); LYMPHOCYTES % (AUTO) 29.8 % (20.0-45.0); MEAN CORPUSCULAR VOLUME 94 FL (80-99); MONOCYTES % (AUTO) 6.6 % (1.0-10.0); NEUTROPHILS % (AUTO) 59.4 % (45.0-75.0); PLATELET COUNT 213 K/UL (150-450); RED BLOOD COUNT 4.36 M/UL (4.20-5.40); RED CELL DISTRIBUTION WIDTH 12.8 % (11.6-14.8); WHITE BLOOD COUNT 5.9 K/UL (4.8-10.8)
--- NOTE | 2020-08-31 07:28 | NUR ---
NURSE NOTES: Report received from Stuart RN, rounds made. Patient AOx4, calm. Respirations even/unlabored on RA. NPO, ice chips at bedside. TPN infusing at 74 ml/hr and D5 1/2 NS+20 KCL at 25 ml/hr, PIG BREEDER Dilaudid 0.2mg (bolus), every 6 minutes, 6 mg lockout to CARLITOS PICC, dressing CDI. Right lower abdomen ileostomy catheter in place, draining dark green output to drainage bag, will flush NS Q3H as ordered. Voids BRP in hat. Plans for Upper GI/Barium Small Bowel Series. Call light in reach, bed in lowest position, will continue to monitor.
--- NOTE | 2020-08-31 07:30 | NUR ---
NURSE HAND-OFF: Important Events on Shift: TPN 74ml/hr, pain management, ileo flush 20cc q3h Patient Status: Stable Diet: NPO Pending Orders: [] Pending Results/Labs:[] Pending MD notification:[] Latest Vital Signs: Temperature 97.3 , Pulse 76 , B/P 140 /80 , Respiratory Rate 16 , O2 SAT 95 , Room Air, O2 Flow Rate . Vital Sign Comment: VS stable Latest Dumont Fall Score: 35 Fall Risk: Medium Risk Safety Measures: Call light Within Reach, Bed Alarm Zone 1, Side Rails Side Rails x2, Bed position Low and Locked. Fall Precautions: Yellow Socks Door Sign Patient Fall Education Report given to Lesly LEE.
[2020-08-31 08:22] LABS: ALANINE AMINOTRANSFERASE 19 U/L (12-78); ALKALINE PHOSPHATASE 62 U/L (46-116); ANION GAP 9 mmol/L (5-15); ASPARTATE AMINO TRANSFERASE 20 U/L (15-37); BILIRUBIN,TOTAL 0.1 MG/DL (0.2-1.0); BLOOD UREA NITROGEN 4 mg/dL (7-18); CALCIUM 8.5 MG/DL (8.5-10.1); CARBON DIOXIDE 24 MMOL/L (21-32); CHLORIDE 105 MMOL/L (98-107); CREATININE 0.8 MG/DL (0.55-1.30); PHOSPHORUS 2.8 MG/DL (2.5-4.9); POTASSIUM 4.4 MMOL/L (3.5-5.1); SODIUM 138 MMOL/L (136-145)
[2020-08-31 08:31] LABS: ALBUMIN 2.9 G/DL (3.4-5.0)
--- NOTE | 2020-08-31 11:16 | NUR ---
Jig Mill OperatorWood Setter SI: Renee Pouch malfunction, abd pain T 98.3, HR 80, RR 19, BP 122/72, O2 sat 99% Glucose 223, Bilirubin 0.1 IS: NovoLOG sq D5/NS w/KCL 20meq @ 25cc/hr TPN @ 74cc/hr Iron Sucrose IV Thyroid PO QD Plan: Possible exploratory LAP Med/Surg Status
[2020-08-31] MEDS ORDERED: Naloxone 0.4mg/ml Inj IVP PRN (11:26)
[2020-08-31] MEDS ORDERED: DiphenhydrAMINE 50mg/ml Inj IVP PRN (11:30)
[2020-08-31] MEDS ORDERED: Rate Change PCA 1 Each MISC PRN (11:30)
[2020-08-31] MEDS ORDERED: PCA HYDROmorphone 1mg/ml 30 ML IV PRN (11:30)
--- NOTE | 2020-08-31 11:34 | General Progress Note ---
Progress Note Progress Note AVSS Continues to have LLQ pain using dilaudid TENSION MACHINE OPERATOR intermittently, no nausea since NPO on TPN now Abdomen soft Urine 2250 BCIR ileo 390 labs all satisf/stable with albumin only 2.9 Imp: Abdominal pain r/o partial SBO ? adhesions ? stricture - CT scan neg except "incidental" finding of loculated pelvic fluid Plan: NPO, TPN, maintain indwelling Renee pouch catheter to continuous drainage UGI with small bowel series using barium today Fidel Mccain MD Aug 31, 2020 11:34
--- NOTE | 2020-08-31 14:15 | NUR ---
NURSE NOTES: Patient sent down for Upper GI Barium Small Bowel Series via gurney in stable condition, with TPN/IV/DIRECTOR OF INSTRUCTION in place, ileostomy catheter and drainage bag remain in place as well.
[2020-08-31] MEDS: D5 1/2NS w/KCl 20mEq 1,000 ML IV SCH (15:32)
--- NOTE | 2020-08-31 15:47 | NUR ---
NURSE NOTES: Patient returned from Radiology via gurney in stable condition at 1518. Medicated with Zofran per patient request (reports that the barium/flushing ileostomy afterwards causes nausea). Ileostomy output yellow, thick in drainage bag. Irrigated ileostomy with NS 240 ml without difficulty, catheter patent, noted return in drainage bag tubing. Will continue to monitor.
--- NOTE | 2020-08-31 15:56 | Diagnostic Imaging Report ---
Indication: Abdominal pain. Question small bowel obstruction. History of continent ostomy. Technique: Upper GI series and small bowel follow-through. Radiographic and fluoroscopic examination performed the patient administered barium and fluoroscopic images were obtained for upper GI series. Serial radiographic images were obtained for small bowel follow-through. Total fluoroscopy time 31.9 seconds. Total fluoroscopy dose 7.42 mGy. Total number of fluoroscopic images/runs obtained: 8 Comparison: Correlation made to CT of the abdomen and pelvis 08/28/2020 and pouchogram 08/29/2020 FINDINGS: Contact Lens Polisher fluoroscopic images demonstrate surgical material in the abdomen. No distended loops of small bowel seen. No appreciable free intraperitoneal air. Limited esophagram demonstrates no appreciable intraluminal mass. Contrast passes through the esophagus without impediment. There are tertiary contractions of the esophagus. No biliary of contrast passage across the gastroesophageal junction. Patient is status post sleeve gastrectomy. There is no delay in transit of contrast out of the stomach. The ligament of Treitz is located in its normal location to the left of midline. Small bowel series was performed. By 15 minutes after contrast administration contrast is transmitted through the entire bowel and is noted within the pouch of the continent ileostomy. There is no evidence of small bowel obstruction. IMPRESSION: No evidence of small bowel obstruction.
[2020-08-31] MEDS ORDERED: NS Irrig 1000ml ONE (16:04)
--- NOTE | 2020-08-31 17:00 | NUR ---
NURSE NOTES: Spoke to Dr. Mccain, small bowel series results negative, order received for Regular Diet, NO FRUITS OR VEGETABLES (do not want to clog up ileostomy catheter), patient updated on above order, verbalized understanding.
[2020-08-31] MEDS: SPIRONOLACTONE ORAL SCH (17:36)
--- NOTE | 2020-08-31 18:30 | NUR ---
NURSE NOTES: Patient up to bathroom throughout shift, ambulating halls with family at this time, gait steady/moderate pace.
--- NOTE | 2020-08-31 19:35 | NUR ---
NURSE HAND-OFF: Important Events on Shift:Small Bowel Barium Series done (results negative), Irrigated Ileostomy with 480 ml post Barium as ordered, Regular diet (no fruits or vegetables) ordered for dinner Patient Status: stable Diet: Regular (no fruits/vegetables) Pending Orders: labs AM Pending Results/Labs:CBC CMP MG PHOS 09/01 Pending MD notification:none Latest Vital Signs: Temperature 98.6 , Pulse 67 , B/P 147 /69 , Respiratory Rate 20 , O2 SAT 98 , Room Air, O2 Flow Rate . Vital Sign Comment: none Latest Dumont Fall Score: 35 Fall Risk: Medium Risk Safety Measures: Call light Within Reach, Bed Alarm Zone 1, Side Rails Side Rails x2, Bed position Low and Locked. Fall Precautions: Yellow Socks Yellow Gown Door Sign Patient Fall Education Report given to Stuart LEE.
--- NOTE | 2020-08-31 19:45 | NUR ---
NURSE NOTES: Received report from Lesly LEE. Patient is awake, alert, and oriented x4. On room air, breathing is even and unlabored. No complains of pain or distress noted. RADIATOR TESTER pump intact. Ileo RLQ intact and draining well. IV PICC left UA intact and patent with no bleeding noted. TPN running at 74ml/hr with IVF running as ordered. Bed low and locked. Call light within reach.
[2020-08-31] MEDS: Dyna-Hex 2% Top Sol 2oz TOPIC SCH (20:48)
[2020-08-31] MEDS: Iron Sucrose 100 MG in NS 55 ML IVPB SCH (20:48)
[2020-08-31] MEDS: TPN IV SCH ×2 (20:50)
[2020-08-31] MEDS: [UNRECOGNIZED DRUG - OTHER] IV SCH ×2 (20:50)
[2020-09-01] VITALS: BP 102/55
[2020-09-01] MEDS: NovoLOG Insulin Flexpen SUBQ SCH ×4 (00:22→18:06)
[2020-09-01 04:00] VITALS: BP 101/59
[2020-09-01 05:54] LABS: BASOPHILS % (AUTO) 0.7 % (0.0-2.0); EOSINOPHILS % (AUTO) 2.6 % (0.0-3.0); HEMOGLOBIN 12.6 G/DL (12.0-16.0); MEAN CORPUSCULAR VOLUME 93 FL (80-99); MONOCYTES % (AUTO) 6.9 % (1.0-10.0); NEUTROPHILS % (AUTO) 61.9 % (45.0-75.0); PLATELET COUNT 234 K/UL (150-450); RED BLOOD COUNT 4.09 M/UL (4.20-5.40); RED CELL DISTRIBUTION WIDTH 12.7 % (11.6-14.8); WHITE BLOOD COUNT 7.5 K/UL (4.8-10.8)
[2020-09-01 06:07] LABS: ALANINE AMINOTRANSFERASE 17 U/L (12-78); ALBUMIN 2.8 G/DL (3.4-5.0); ALBUMIN/GLOBULIN RATIO 0.8 (1.0-2.7); ALKALINE PHOSPHATASE 58 U/L (46-116); ANION GAP 6 mmol/L (5-15); ASPARTATE AMINO TRANSFERASE 7 U/L (15-37); BILIRUBIN,TOTAL 0.2 MG/DL (0.2-1.0); BLOOD UREA NITROGEN 13 mg/dL (7-18); CALCIUM 8.5 MG/DL (8.5-10.1); CARBON DIOXIDE 26 MMOL/L (21-32); CHLORIDE 104 MMOL/L (98-107); CREATININE 0.8 MG/DL (0.55-1.30); PHOSPHORUS 2.6 MG/DL (2.5-4.9); POTASSIUM 4.4 MMOL/L (3.5-5.1); SODIUM 136 MMOL/L (136-145)
[2020-09-01] MEDS: PCA shift volume MISC SCH ×2 (07:12→19:00)
--- NOTE | 2020-09-01 07:29 | NUR ---
NURSE HAND-OFF: Important Events on Shift: Flush ileo 20cc and PRN. TPN 74ml/hr, IVF with venofer, pain management. Patient Status: Stable Diet: Regular (no fruits and vegatables) Pending Orders: [] Pending Results/Labs:[] Pending MD notification:[] Latest Vital Signs: Temperature 97.5 , Pulse 75 , B/P 101 /59 , Respiratory Rate 18 , O2 SAT 94 , Room Air, O2 Flow Rate . Vital Sign Comment: VS stable Latest Dumont Fall Score: 35 Fall Risk: Medium Risk Safety Measures: Call light Within Reach, Bed Alarm Zone 1, Side Rails Side Rails x2, Bed position Low and Locked. Fall Precautions: Yellow Socks Yellow Gown Door Sign Patient Fall Education Report given to Terrence LEE.
[2020-09-01 08:00] VITALS: BP_SYST 111; BP_DIAS 61; BP_DIAS 69
--- NOTE | 2020-09-01 09:32 | General Progress Note ---
Progress Note Progress Note AVSS UGI with small bowel series shows no obstruction with barium contrast into Renee continent ileostomy pouch within 20 minutes of drinking the contrast. Abdomen soft Urine 2200 BCIR ileo 835 labs all stable with phos 2.6 and Mg 1.9 Albumin 2.8 Imp: No evidence of obstruction to explain LLQ pain and nausea with eating Plan: trial of regular diet while maintaining indwelling Renee Pouch catheter to continuous drainage continue TPN f/u labs STAT KUB XRay prn cramps, distention or nausea Fidel Mccain MD Sep 01, 2020 09:32
[2020-09-01] MEDS ORDERED: Naloxone 0.4mg/ml Inj IVP PRN (10:00)
[2020-09-01] MEDS ORDERED: PCA HYDROmorphone 1mg/ml 30 ML IV PRN (10:00)
[2020-09-01] MEDS ORDERED: DiphenhydrAMINE 50mg/ml Inj IVP PRN (10:00)
[2020-09-01] MEDS ORDERED: Rate Change PCA 1 Each MISC PRN (10:00)
--- NOTE | 2020-09-01 11:18 | NUR ---
NURSE NOTES: Received pt from JESUS Davidson. pt was sleeping comfortably, no acute distress. call light w/in reach.
[2020-09-01 12:00] VITALS: BP 112/64
[2020-09-01] MEDS ORDERED: Potassium Phosphate 15mm/250ml 250 ML IVPB ONE (12:00)
[2020-09-01] MEDS ORDERED: NS Irrig 1000ml ONE (15:56)
[2020-09-01 16:00] VITALS: BP 103/63
[2020-09-01] MEDS: SPIRONOLACTONE ORAL SCH (18:30)
--- NOTE | 2020-09-01 18:50 | NUR ---
CASE MANAGEMENT:REVIEW 09/01/20 SI: IZA CONTINENT ILEOSTOMY MALFUNCTION ABDOMINAL PAIN...S/P POUCH ENDOSCOPY 97.9 72 18 103/63 100% ON RA GLUCOSE+247 IS: TPN/IL @74/HR INTERVENTIONIST DILAUDID IV VENOFER QHS IVF@25/HR : MED/SURG STATUS 3 EAST
--- NOTE | 2020-09-01 19:42 | NUR ---
HAND-OFF: Report given to JESUS Wolff. pt is stable condition.
[2020-09-01 20:00] VITALS: BP 119/68
[2020-09-01] MEDS: D5 1/2NS w/KCl 20mEq 1,000 ML IV SCH (20:00)
[2020-09-01] MEDS: Dyna-Hex 2% Top Sol 2oz TOPIC SCH (20:48)
[2020-09-01] MEDS: TPN IV SCH ×2 (20:49)
[2020-09-01] MEDS: [UNRECOGNIZED DRUG - OTHER] IV SCH ×2 (20:49)
[2020-09-01] MEDS: Iron Sucrose 100 MG in NS 55 ML IVPB SCH (21:08)
[2020-09-02] VITALS (8 sets, daily range): BP systolic 105–131; BP diastolic 68–79
[2020-09-02] MEDS: NovoLOG Insulin Flexpen SUBQ SCH ×5 (00:13→23:46)
--- NOTE | 2020-09-02 00:18 | NUR ---
nurse's notes: Earlier, patient verbalized to this RN that ever since the dilaudid BONE TENDER was changed earlier during the day, she could not feel the effectivity of the narcotic each times she used it. This RN then continued to troubleshoot problem by inspecting the primaryn Addendum: 09/02/20 at 0027 by MAURICIO PARSON ADDENDUM TO ABOVE: This RN then continued to troubleshoot the problem by inspecting the primary line (no problem seen) and the actual BONE TENDER syringe; small amount of air bubbles noted so then this RN disconnected the primary line from the syringe and primed the syringe thus wasting about 3.7mg/ml of dilaudid.
[2020-09-02] MEDS: PCA shift volume MISC SCH ×2 (07:07→19:29)
--- NOTE | 2020-09-02 07:16 | NUR ---
NURSE HAND-OFF: Important Events on Shift: was experiencing abdominal distention, pain and nausea at the start of shift; noted thick brownish output from ileostomy; initially flushed ileo with 180 ml of NS. pain managed well with TRANSCRIPTION TYPIST dilaudid; pain and distention better since then but continues to be nauseous; order stat KUB per PMD's order; called radiology twice, left VM once; still waiting for callback. advised patient too to keep NPO until KUB done. unable to draw blood specimen from PICC; call lab to send somebody to draw; per lab casting chipper still making rounds. Net ileo output = 245; total UOP = 525. Patient Status: stable at this time Diet: see order Pending Orders: see orders Pending Results/Labs:see orders Pending MD notification: see orders Latest Vital Signs: Temperature 98.2 , Pulse 82 , B/P 118 /71 , Respiratory Rate 18 , O2 SAT 95 , Room Air, O2 Flow Rate . Vital Sign Comment: stable;afebrile Latest Dumont Fall Score: 35 Fall Risk: Medium Risk Safety Measures: Call light Within Reach, Bed Alarm Zone 1, Side Rails Side Rails x2, Bed position Low and Locked. Fall Precautions: Yellow Socks Yellow Gown Door Sign Patient Fall Education Report given to JESUS bennett.
--- NOTE | 2020-09-02 07:32 | NUR ---
NURSE NOTES: Received report from Mariella LEE. Patient is awake, oriented, in no distress. Ileo draining to gravity, patient reports she is feeling better s/p Compazine administration, denies pain. Breakfast tray held pending KUB for n/v overnight per jeweler apprentice nurse. CARLITOS PICC dressing clean, dry, infusing IVF and TPN per order, CONCRETE HOPPER OPERATOR running per order. Patient updated on plan of care. Side rails upx2, bed low and locked, call light within reach.
[2020-09-02] MEDS ORDERED: Naloxone 0.4mg/ml Inj IVP PRN (08:55)
[2020-09-02] MEDS ORDERED: Rate Change PCA 1 Each MISC PRN (09:00)
[2020-09-02 09:05] LABS: BASOPHILS % (AUTO) 0.7 % (0.0-2.0); EOSINOPHILS % (AUTO) 1.4 % (0.0-3.0); HEMATOCRIT 41.7 % (37.0-47.0); HEMOGLOBIN 13.8 G/DL (12.0-16.0); MEAN CORPUSCULAR VOLUME 94 FL (80-99); MONOCYTES % (AUTO) 5.1 % (1.0-10.0); NEUTROPHILS % (AUTO) 75.8 % (45.0-75.0); PLATELET COUNT 252 K/UL (150-450); RED BLOOD COUNT 4.46 M/UL (4.20-5.40); RED CELL DISTRIBUTION WIDTH 12.8 % (11.6-14.8)
[2020-09-02] MEDS ORDERED: LORazepam 1mg tab ORAL PRN (09:15)
[2020-09-02] MEDS ORDERED: LORazepam 1mg tab SL PRN (09:15)
--- NOTE | 2020-09-02 09:19 | General Progress Note ---
Progress Note Progress Note AVSS Did not tolerate solid food - had cramps and nausea Abdomen soft, non-tender I&O satisfactory with BCIR ileo catheter draining well Labs pending Imp: R/O partial SBO despite negative work-up so far Plan; Will have Dr. Brown consult to perform pouch endoscopy with retrograde push endoscopy. May need "exploratory laparotomy" in view of persistent symptoms despite negative imaging (CT, pouchogram, barium SBS) Continue TPN, change to clear liquid diet as tolerated Fidel Mccain MD Sep 02, 2020 09:19
--- NOTE | 2020-09-02 09:33 | Diagnostic Imaging Report ---
EXAM: XR Abdomen, 2 Views CLINICAL HISTORY: N TECHNIQUE: Frontal view of the abdomen/pelvis with upright view of the abdomen. COMPARISON: CT abdomen pelvis August 28, 2020. FINDINGS/IMPRESSION: Nonobstructed bowel gas pattern. Relative paucity of bowel gas. Extensive surgical clips project over the abdomen. There is a percutaneous catheter within the right side of the pelvis. See CT abdomen pelvis from August 28, 2020. The lung bases are clear. The osseous structures are intact. Surgical chain sutures within the pelvis, correlate with surgical history.
[2020-09-02 09:41] LABS: ALANINE AMINOTRANSFERASE 18 U/L (12-78); ALBUMIN 3.2 G/DL (3.4-5.0); ALBUMIN/GLOBULIN RATIO 0.8 (1.0-2.7); ALKALINE PHOSPHATASE 72 U/L (46-116); ANION GAP 7 mmol/L (5-15); ASPARTATE AMINO TRANSFERASE 18 U/L (15-37); BILIRUBIN,TOTAL 0.2 MG/DL (0.2-1.0); BLOOD UREA NITROGEN 9 mg/dL (7-18); CALCIUM 9.2 MG/DL (8.5-10.1); CARBON DIOXIDE 26 MMOL/L (21-32); CHLORIDE 101 MMOL/L (98-107); CREATININE 0.8 MG/DL (0.55-1.30); PHOSPHORUS 1.5 MG/DL (2.5-4.9); POTASSIUM 5.2 MMOL/L (3.5-5.1); SODIUM 134 MMOL/L (136-145)
[2020-09-02] MEDS ORDERED: PCA HYDROmorphone 1mg/ml 30 ML IV PRN (10:00)
[2020-09-02] MEDS ORDERED: DiphenhydrAMINE 50mg/ml Inj IVP PRN (10:00)
--- NOTE | 2020-09-02 10:00 | NUR ---
NURSE NOTES: Dr. Mccain notified and aware of potassium, sodium phos levels for this AM.
[2020-09-02] MEDS: D5 1/2NS 1,000 ML IV SCH (10:13)
[2020-09-02] MEDS: Potassium Phosphate 15mm/250ml 250 ML IVPB SCH ×2 (11:03→14:47)
--- NOTE | 2020-09-02 11:05 | General Progress Note ---
Subjective ROS Limited/Unobtainable: Yes Allergies: Coded Allergies: MORPHINE (Verified Allergy, Severe, 08/28/20) PENICILLINS (Verified Allergy, Severe, 08/28/20) Objective Last 24 Hour Vital Signs Date Time Temp Pulse Resp B/P (MAP) Pulse Ox O2 Delivery O2 Flow Rate FiO2 09/02/20 09:00 Room Air 09/02/20 08:00 16 09/02/20 08:00 98.3 87 16 119/79 (92) 94 09/02/20 04:34 98.2 82 18 118/71 (87) 95 09/02/20 04:00 96 18 96 09/02/20 00:13 97.7 96 17 120/75 (90) 97 09/02/20 00:00 96 17 97 09/01/20 21:00 Room Air 09/01/20 20:00 72 17 97 09/01/20 20:00 98.1 72 17 119/68 (85) 97 09/01/20 16:00 97.9 72 18 103/63 (76) 100 09/01/20 16:00 75 18 94 09/01/20 12:00 98.2 72 18 112/64 (80) 100 09/01/20 12:00 75 18 94 Intake and Output 09/01/20 09/02/20 19:00 07:00 Intake Total 1000 ml 99 ml Output Total 1370 ml 870 ml Balance -370 ml -771 ml Intake Oral 1000 ml 0 ml IV Total 99 ml Output Urine Total 1200 ml 525 ml Other 170 ml 345 ml # Voids 4 3 Laboratory Tests 09/01/20 12:11: POC Whole Blood Glucose [Pending] 09/01/20 18:02: POC Whole Blood Glucose [Pending] 09/02/20 08:36: White Blood Count 8.0, Red Blood Count 4.46, Hemoglobin 13.8, Hematocrit 41.7, Mean Corpuscular Volume 94, Mean Corpuscular Hemoglobin 31.0, Mean Corpuscular Hemoglobin Concent 33.2, Red Cell Distribution Width 12.8, Platelet Count 252, Mean Platelet Volume 7.5, Neutrophils (%) (Auto) 75.8H, Lymphocytes (%) (Auto) 17.0L, Monocytes (%) (Auto) 5.1, Eosinophils (%) (Auto) 1.4, Basophils (%) (Auto) 0.7, Sodium Level 134L, Potassium Level 5.2H, Chloride Level 101, Carbon Dioxide Level 26, Anion Gap 7, Blood Urea Nitrogen 9, Creatinine 0.8, Estimat Glomerular Filtration Rate > 60, Glucose Level 270H, Calcium Level 9.2, Phosphorus Level 1.5L, Magnesium Level 2.0, Total Bilirubin 0.2, Aspartate Amino Transf (AST/SGOT) 18, Alanine Aminotransferase (ALT/SGPT) 18, Alkaline Phosphatase 72, Total Protein 7.0, Albumin 3.2L, Globulin 3.8, Albumin/Globulin Ratio 0.8L Height (Feet): 5 Height (Inches): 5.00 Weight (Pounds): 190 General Appearance: no apparent distress EENT: normal ENT inspection Neck: normal alignment Cardiovascular: normal rate Respiratory/Chest: decreased breath sounds Abdomen: hypoactive bowel sounds Extremities: non-tender Assessment/Plan Assessment/Plan: abd pain DM UC ? intestinal stricture plan pouchoscopy for tomorrow add Alfa Werner MD Sep 02, 2020 11:05
[2020-09-02] MEDS ORDERED: Dicyclomine HCl 10mg/5ml oral soln ORAL PRN (12:00)
--- NOTE | 2020-09-02 13:19 | NUR ---
NURSE NOTES: Report given to Terrence LEE.
[2020-09-02] MEDS: SPIRONOLACTONE ORAL SCH (18:05)
--- NOTE | 2020-09-02 19:25 | NUR ---
NURSE NOTES: Received report from JESUS Ocampo. IVF and TPN infusing well. Pt is in no distress and has no needs as of now. Call light within reach. Bed in lowest position. CLINICAL INFORMATICIST pump with dilaudid is in place for pain management. Will continue to monitor.
--- NOTE | 2020-09-02 19:34 | NUR ---
HAND-OFF: Report given to JESUS Rodriguez, pt is stable condition.
[2020-09-02] MEDS: Iron Sucrose 100 MG in NS 55 ML IVPB SCH (20:29)
[2020-09-02] MEDS: Dyna-Hex 2% Top Sol 2oz TOPIC SCH (20:29)
[2020-09-02] MEDS: TPN IV SCH ×2 (20:31)
[2020-09-02] MEDS: [UNRECOGNIZED DRUG - OTHER] IV SCH ×2 (20:31)
[2020-09-03] VITALS (12 sets, daily range): BP systolic 108–155; BP diastolic 62–87
[2020-09-03] MEDS: NovoLOG Insulin Flexpen SUBQ SCH ×3 (05:26→18:28)
[2020-09-03 06:47] LABS: BASOPHILS % (AUTO) 0.9 % (0.0-2.0); EOSINOPHILS % (AUTO) 3.6 % (0.0-3.0); HEMATOCRIT 37.6 % (37.0-47.0); HEMOGLOBIN 12.7 G/DL (12.0-16.0); LYMPHOCYTES % (AUTO) 33.1 % (20.0-45.0); MEAN CORPUSCULAR VOLUME 94 FL (80-99); MONOCYTES % (AUTO) 7.1 % (1.0-10.0); NEUTROPHILS % (AUTO) 55.5 % (45.0-75.0); PLATELET COUNT 220 K/UL (150-450); RED BLOOD COUNT 4.01 M/UL (4.20-5.40); RED CELL DISTRIBUTION WIDTH 12.6 % (11.6-14.8)
--- NOTE | 2020-09-03 07:20 | NUR ---
NURSE HAND-OFF: Important Events on Shift: Nausea, insulin for glucose >200 Patient Status: sleeping Diet: NPO Pending Orders: Pending Results/Labs: Pending MD notification: Latest Vital Signs: Temperature 98.1 , Pulse 77 , B/P 110 /63 , Respiratory Rate 16 , O2 SAT 97 , Room Air, O2 Flow Rate . Vital Sign Comment: VSS Latest Dumont Fall Score: 35 Fall Risk: Medium Risk Safety Measures: Call light Within Reach, Bed Alarm Zone 1, Side Rails Side Rails x2, Bed position Low and Locked. Fall Precautions: Yellow Socks Door Sign Patient Fall Education Report given to JESUS Chen.
[2020-09-03] MEDS: PCA shift volume MISC SCH ×2 (07:27→19:17)
--- NOTE | 2020-09-03 07:30 | NUR ---
NURSE NOTES: Patient is in bed awake and able to verbalize needs. Stable. No visible signs of distress or discomfort at this time. Patient instructed to use call light for assistance, verbalized understanding. PICC patent and running TPN, IVF, AND HISTOLOGIC TECHNICIAN as ordered. Patient denies pain at this time. All needs met at this time. Will flush pouch and monitor I&O. All safety measures provided. Patient is in bed in locked and lowest position with call light within reach and overhead trapeze. Will continue plan of care.
[2020-09-03 07:52] LABS: ALANINE AMINOTRANSFERASE 17 U/L (12-78); ALBUMIN 2.8 G/DL (3.4-5.0); ALBUMIN/GLOBULIN RATIO 0.8 (1.0-2.7); ALKALINE PHOSPHATASE 58 U/L (46-116); ANION GAP 8 mmol/L (5-15); ASPARTATE AMINO TRANSFERASE 14 U/L (15-37); BILIRUBIN,TOTAL 0.2 MG/DL (0.2-1.0); BLOOD UREA NITROGEN 11 mg/dL (7-18); CALCIUM 8.8 MG/DL (8.5-10.1); CARBON DIOXIDE 27 MMOL/L (21-32); CHLORIDE 102 MMOL/L (98-107); CREATININE 0.8 MG/DL (0.55-1.30); PHOSPHORUS 2.6 MG/DL (2.5-4.9); POTASSIUM 4.1 MMOL/L (3.5-5.1); SODIUM 137 MMOL/L (136-145)
[2020-09-03] MEDS ORDERED: Naloxone 0.4mg/ml Inj IVP PRN (08:53)
--- NOTE | 2020-09-03 08:54 | Pre-Procedure Note/Attestation ---
Pre-Procedure Note/Attestation Complete Prior to Procedure Planned Procedure: not applicable Procedure Narrative: pouchoscopy Indications for Procedure Pre-Operative Diagnosis: pouchitis Attestation I attest that I discussed the nature of the procedure; its benefits; risks and complications; and alternatives (and the risks and benefits of such alternatives), prior to the procedure, with the patient (or the patient's legal cash posting representative). I attest that, if there was a reasonable possibility of needing a blood tra nsfusion, the patient (or the patient's legal cash posting representative) was given the [facility] standardized written summary, pursuant to the [place] Blood Safety Act ([place] Health and Safety Code # 1645, as amended). I attest that I re-evaluated the patient just prior to the surgery and that there has been no change in the patient's H&P, except as documented below: Alfa Brown MD Sep 03, 2020 08:53
[2020-09-03] MEDS ORDERED: Rate Change PCA 1 Each MISC PRN (09:00)
[2020-09-03] MEDS ORDERED: HYDROmorphone 1mg/ml Carpuject SUBQ PRN (09:15)
[2020-09-03] MEDS ORDERED: HYDROcodone/Acetamin 5/325 tab ORAL PRN (09:15)
--- NOTE | 2020-09-03 09:18 | General Progress Note ---
Progress Note Progress Note AVSS Less cramping with clear liquids but only took 600cc. Now npo for Renee pouch endoscopy with push endoscopy into afferent small bowel R/O partial SBO or stricture not seen on imaging studies Abdomen soft Urine 1750 BCIR ileo 195 labs okay except Phos 2.6 and Mg 1.7 albumin 2.8 Imp: Abdominal pain r/o Renee pouch afferent bowel stricture/angulation Plan: Infuse Mg and Phos NPO for endoscopy today continue TPN Fidel Mccain MD Sep 03, 2020 09:18
[2020-09-03] MEDS ORDERED: Potassium Phosphate 15mm/250ml 250 ML IVPB ONE (10:00)
[2020-09-03] MEDS ORDERED: DiphenhydrAMINE 50mg/ml Inj IVP PRN (10:00)
[2020-09-03] MEDS: D5 1/2NS 1,000 ML IV SCH (10:00)
[2020-09-03] MEDS ORDERED: PCA HYDROmorphone 1mg/ml 30 ML IV PRN (10:00)
--- NOTE | 2020-09-03 10:07 | NUR ---
CASE MANAGEMENT:REVIEW 09/03/20 SI: COUCH CONTINENT ILEOSTOMY MALFUNCTION ABDOMINAL PAIN...S/P POUCH ENDOSCOPY 97.9 79 16 119/63 95% ON RA GLUCOSE+248 MAG-1.7 IS: TPN/IL @74/HR MIMEOGRAPH OPERATOR DILAUDID IVF@25/HR : MED/SURG STATUS 3 EAST PLAN: NPO FOR COUCH POUCH ENDOSCOPY WITH PUSH.....
[2020-09-03] MEDS ORDERED: fentaNYL 100 mcg/2 mL IV ONE (13:03)
[2020-09-03] MEDS ORDERED: Midazolam 2mg/2ml Inj ONE (13:03)
--- NOTE | 2020-09-03 13:07 | NUR ---
NURSE NOTES: Patient taken for pouchoscopy.
--- NOTE | 2020-09-03 13:14 | NUR ---
RD ASSESSMENT & RECOMMENDATIONS SEE CARE ACTIVITY FOR COMPLETE ASSESSMENT DAILY ESTIMATED NEEDS: Needs based on Pending surgery 59.7kg abw 25-30 kcals/kg 4885-9796 total kcals 1-2 g protein/kg 60-119 g total protein 25-30 mL/kg 8941-7408 total fluid mLs NUTRITION DIAGNOSIS: Altered GI function r/t ileostomy malfunction as evidenced by s/p endoscopy, pending possible ex lap, NPO status, TPN ordered. CURRENT DIET: NPO PARENTERAL NUTRITION RECOMMENDATIONS: D/AA Rate: 65 IL Rate: 9 Total Rate: 74 Volume: 1776 % Dextrose: 18 % AA: 5.4 Energy (kcals/kg): 1724 Protein (g/kg protein): 84 Nonprotein KCALS: 1387 GIR (mg CHO/kg/min): 2.6 % Fat KCALS: 25 NPC: N Ratio: 103:1 TPN Comment: - D18% with AA 5.4% @65ml/hr + IL20% @9ml/hr-> alll 3:1, goal of 74ml/hr. - Start rate per MD - GIR<5 - %fat <30% ------ ADDITIONAL RECOMMENDATIONS: 1) H/o DM, will monitor BG, need for formulary change. 2) Check LFT's, lytes, BG w/ TPN 3) Obtain a standing wt Stated wt 165# vs EMR wt 175# 4) rec to hold added D5 in light of elevated BG (200's)
--- NOTE | 2020-09-03 13:32 | Immediate Post-Op Evaluation ---
Immediate Post-Op Evalulation Immediate Post-Op Evalulation Procedure: Pouch endoscopy Date of Evaluation: Sep 03, 2020 Time of Evaluation: 13:31 IV Fluids: 250 Blood Products: none Estimated Blood Loss: none Urinary Output: none Blood Pressure Systolic: 122 Blood Pressure Diastolic: 76 Pulse Rate: 72 Respiratory Rate: 20 O2 Sat by Pulse Oximetry: 99 Temperature (Fahrenheit): 97.7 Pain Score (1-10): 1 Nausea: No Vomiting: No Complications none Patient Status: reacts, patent, none Hydration Status: adequate Librado Jacob MD Sep 03, 2020 13:32
--- NOTE | 2020-09-03 13:36 | Endoscopy Procedure Note ---
Endoscopy Procedure Note General Indication for Procedure: pouchoscopy Procedures Performed: flexible sigmoidoscopy Operative Findings/Diagnosis: pouchitis Specimen: none Pt Tolerated Procedure Well: Yes Estimated Blood Loss: none Anesthesia Anesthesiologist: ashlee Anesthesia: MAC Inserted Devices Implant(s) used?: No GI Core Measures 50 yrs or older w/o bx or poly: Not Applicable 10yrs. F/U recommended: Not Applicable Alfa Brown MD Sep 03, 2020 13:36
--- NOTE | 2020-09-03 14:24 | NUR ---
NURSE NOTES: Patient arrived on unit. Stable.Denies pain or SOB. Ileo to drainage bag as ordered. Patient instructed to use call light for assistance, verbalized understanding. Patient is in bed in locked and lowest position with call light within reach. All safety measures provided. Will continue plan of care.
--- NOTE | 2020-09-03 15:34 | NUR ---
INSURANCE CLINICALS AND REVIEW FAXED TO [facility] T: [phone] F: [phone]
[2020-09-03] MEDS: SPIRONOLACTONE ORAL SCH (18:23)
--- NOTE | 2020-09-03 19:15 | NUR ---
NURSE NOTES: Received report from JESUS Chen. Pt is A&Ox4 in bed, calm. Call light within reach, side rails up x2, bed in lowest position. IVF and TPN infusing well. SET UP TECHNICIAN pump running as ordered. Will continue to monitor.
--- NOTE | 2020-09-03 19:24 | NUR ---
NURSE HAND-OFF: report given to Michael LEE.
[2020-09-03] MEDS: Dyna-Hex 2% Top Sol 2oz TOPIC SCH (20:22)
[2020-09-03] MEDS: [UNRECOGNIZED DRUG - OTHER] IV SCH ×2 (20:32)
[2020-09-03] MEDS: TPN IV SCH ×2 (20:32)
[2020-09-04] VITALS (7 sets, daily range): BP systolic 108–150; BP diastolic 61–89
[2020-09-04] MEDS: NovoLOG Insulin Flexpen SUBQ SCH ×5 (00:03→23:54)
[2020-09-04 05:30] LABS: BASOPHILS % (AUTO) 1.1 % (0.0-2.0); EOSINOPHILS % (AUTO) 3.3 % (0.0-3.0); HEMATOCRIT 41.4 % (37.0-47.0); HEMOGLOBIN 13.6 G/DL (12.0-16.0); LYMPHOCYTES % (AUTO) 30.6 % (20.0-45.0); MEAN CORPUSCULAR VOLUME 93 FL (80-99); MONOCYTES % (AUTO) 6.2 % (1.0-10.0); NEUTROPHILS % (AUTO) 58.8 % (45.0-75.0); PLATELET COUNT 233 K/UL (150-450); RED BLOOD COUNT 4.44 M/UL (4.20-5.40); RED CELL DISTRIBUTION WIDTH 13.4 % (11.6-14.8)
[2020-09-04 05:51] LABS: ALANINE AMINOTRANSFERASE 22 U/L (12-78); ALBUMIN/GLOBULIN RATIO 0.8 (1.0-2.7); ALKALINE PHOSPHATASE 68 U/L (46-116); ANION GAP 6 mmol/L (5-15); ASPARTATE AMINO TRANSFERASE 12 U/L (15-37); BILIRUBIN,TOTAL 0.6 MG/DL (0.2-1.0); BLOOD UREA NITROGEN 12 mg/dL (7-18); CALCIUM 8.5 MG/DL (8.5-10.1); CARBON DIOXIDE 28 MMOL/L (21-32); CHLORIDE 102 MMOL/L (98-107); CREATININE 0.9 MG/DL (0.55-1.30); PHOSPHORUS 2.5 MG/DL (2.5-4.9); POTASSIUM 4.1 MMOL/L (3.5-5.1); SODIUM 136 MMOL/L (136-145)
[2020-09-04] MEDS: PCA shift volume MISC SCH ×2 (07:00→19:23)
--- NOTE | 2020-09-04 07:20 | NUR ---
NURSE HAND-OFF: Important Events on Shift: Compazine for N/V 2100, urine 800, true output 70 Patient Status: calm Diet: clear liquid Pending Orders: Pending Results/Labs: Pending MD notification: Latest Vital Signs: Temperature 97.6 , Pulse 84 , B/P 112 /68 , Respiratory Rate 16 , O2 SAT 96 , Room Air, O2 Flow Rate 3 . Vital Sign Comment: VSS Latest Dumont Fall Score: 35 Fall Risk: Medium Risk Safety Measures: Call light Within Reach, Bed Alarm Zone 1, Side Rails Side Rails x2, Bed position Low and Locked. Fall Precautions: Yellow Socks Door Sign Patient Fall Education Report given to JESUS Eng.
--- NOTE | 2020-09-04 07:45 | NUR ---
NURSE NOTES: Received report from Archana Rodriguez. Patient in bed awake and oriented. Breathing even and unlabored in room air. No acute distress noted. Denied any pain or discomfort at this time. PICC patent and running TPN and IVF ordered. Ileo cath draining to gravity. RUMPER setting checked. Bed in locked and lowest position with call light within reach. Will continue plan of care
--- NOTE | 2020-09-04 08:20 | General Progress Note ---
Subjective ROS Limited/Unobtainable: Yes Allergies: Coded Allergies: MORPHINE (Verified Allergy, Severe, 08/28/20) PENICILLINS (Verified Allergy, Severe, 08/28/20) Objective Last 24 Hour Vital Signs Date Time Temp Pulse Resp B/P (MAP) Pulse Ox O2 Delivery O2 Flow Rate FiO2 09/04/20 08:09 98.5 80 18 121/66 (84) 99 09/04/20 04:00 84 16 96 09/04/20 04:00 97.6 84 16 112/68 (83) 96 09/04/20 00:00 81 17 98 09/04/20 00:00 97.6 81 17 114/64 (81) 98 09/03/20 21:00 Room Air 09/03/20 20:00 75 18 97 09/03/20 20:00 97.9 75 18 119/75 (90) 97 09/03/20 19:58 97 Room Air 21 09/03/20 17:04 97 Room Air 21 09/03/20 16:00 71 18 98 09/03/20 16:00 97.9 71 18 146/85 (105) 98 09/03/20 14:30 97.8 72 16 155/82 (106) 96 09/03/20 14:00 97.9 81 22 149/87 100 Room Air 09/03/20 13:45 83 18 125/83 99 Nasal Cannula 3 09/03/20 13:35 77 14 121/80 99 Nasal Cannula 3 09/03/20 13:32 72 20 99 09/03/20 13:30 72 14 122/75 99 Nasal Cannula 3 09/03/20 13:26 97.6 74 16 127/77 98 Nasal Cannula 3 09/03/20 12:00 74 16 98 09/03/20 12:00 98.2 74 16 108/75 (86) 98 Intake and Output 09/03/20 09/04/20 19:00 07:00 Intake Total 750 ml 300 ml Output Total 3420 ml 870 ml Balance -2670 ml -570 ml Intake Oral 500 ml 300 ml IV Total 250 ml Output Urine Total 3100 ml 800 ml Other 320 ml 70 ml Laboratory Tests 09/03/20 23:58: POC Whole Blood Glucose 212H 09/04/20 05:00: White Blood Count 7.0, Red Blood Count 4.44, Hemoglobin 13.6, Hematocrit 41.4, Mean Corpuscular Volume 93, Mean Corpuscular Hemoglobin 30.7, Mean Corpuscular Hemoglobin Concent 32.9, Red Cell Distribution Width 13.4, Platelet Count 233, Mean Platelet Volume 7.7, Neutrophils (%) (Auto) 58.8, Lymphocytes (%) (Auto) 30.6, Monocytes (%) (Auto) 6.2, Eosinophils (%) (Auto) 3.3H, Basophils (%) (Auto) 1.1, Sodium Level 136, Potassium Level 4.1, Chloride Level 102, Carbon Dioxide Level 28, Anion Gap 6, Blood Urea Nitrogen 12, Creatinine 0.9, Estimat Glomerular Filtration Rate > 60, Glucose Level 257H, Calcium Level 8.5, Phosphorus Level 2.5, Magnesium Level 1.9, Total Bilirubin 0.6, Aspartate Amino Transf (AST/SGOT) 12L, Alanine Aminotransferase (ALT/SGPT) 22, Alkaline Phosphatase 68, Total Protein 6.6, Albumin 3.0L, Globulin 3.6, Albumin/Globulin Ratio 0.8L 09/04/20 05:47: POC Whole Blood Glucose 241H Height (Feet): 5 Height (Inches): 5.00 Weight (Pounds): 190 General Appearance: no apparent distress EENT: normal ENT inspection Neck: supple Cardiovascular: normal rate Respiratory/Chest: decreased breath sounds Abdomen: soft, hypoactive bowel sounds Extremities: non-tender Assessment/Plan Assessment/Plan: abd pain DM UC ? intestinal stricture s/p pouchoscopy trial of Bentyl fu surg recs Alfa Brown MD Sep 04, 2020 08:20
[2020-09-04] MEDS ORDERED: PCA HYDROmorphone 1mg/ml 30 ML IV PRN (08:30)
[2020-09-04] MEDS ORDERED: Naloxone 0.4mg/ml Inj IVP PRN (08:30)
[2020-09-04] MEDS ORDERED: Rate Change PCA 1 Each MISC PRN (08:30)
--- NOTE | 2020-09-04 08:35 | General Progress Note ---
Progress Note Progress Note AVSS Push entersoscopy via Renee pouch well into afferent bowel revealed no abnormalities Abdomen soft Urine 3900 BCIR ileo 390 (npo most of the day) labs all stable Mg 1.9 albumin up to 3.0 Imp: R/O partial SBO with extensive negative work-up Malnutrition due to change of diet x 2 months ago due to her symptoms Plan: continue clear liquid diet, TPN, continuous drainage of Renee Pouch Second opinion consultation by Dr. Christiansen re need for exploratory laparotomy vs. ? medical treatment/ dietary changes, etc? Fidel Mccain MD Sep 04, 2020 08:35
[2020-09-04] MEDS: D5 1/2NS 1,000 ML IV SCH (09:00)
--- NOTE | 2020-09-04 11:20 | NUR ---
CASE MANAGEMENT:REVIEW 09/04/20 SI: COUCH CONTINENT ILEOSTOMY MALFUNCTION ABDOMINAL PAIN...S/P PUSH ENTEROSCOPY 98.5 80 18 121/66 99% ON RA GLUCOSE+241 IS: TPN/IL @74/HR CERTIFIED HYPERBARIC TECHNICIAN DILAUDID IVF@25/HR VIT K SQ Q WEEK : MED/SURG STATUS 3 EAST PLAN: CONTINUE TPN AND CLEAR DIET COUCH POUCH TO CONTINUOS DRAINAGE PAIN MANAGEMENT
--- NOTE | 2020-09-04 13:00 | NUR ---
NURSE NOTES: Prescription for pt's home med faxed to [facility] pharmacy [facility]. Medication will be delivered tomorrow per pharmacy.
[2020-09-04] MEDS: Dicyclomine HCl 10mg/5ml oral soln ORAL SCH ×2 (13:58→21:05)
--- NOTE | 2020-09-04 16:40 | NUR ---
INSURANCE CLINICALS AND REVIEW FAXED TO [facility] T: [phone] F: [phone]
[2020-09-04] MEDS: SPIRONOLACTONE ORAL SCH (18:02)
--- NOTE | 2020-09-04 19:20 | NUR ---
NURSE HAND-OFF: Important Events on Shift:[Consult with Dr. Christiansen, No c/o pain, no N/V] Patient Status: [stable] Diet: [Clear liquid] Pending Orders: [] Pending Results/Labs:[] Pending MD notification:[] Latest Vital Signs: Temperature 98.2 , Pulse 72 , B/P 150 /89 , Respiratory Rate 18 , O2 SAT 95 , Room Air, O2 Flow Rate 3 . Vital Sign Comment: [stable] Latest Dumont Fall Score: 35 Fall Risk: Medium Risk Safety Measures: Call light Within Reach, Bed Alarm Zone 1, Side Rails Side Rails x2, Bed position Low and Locked. Fall Precautions: Yellow Socks Door Sign Patient Fall Education Report given to [JESUS Oliveros].
--- NOTE | 2020-09-04 19:30 | NUR ---
NURSE NOTES: Received patient awake in bed, partner at bedside, AOx4, no s/s of acute distress, no c/o pain at this time. TPN and IVF running on PICC. Dressing to be changed today. Ileo output bright orange red, patient stated it is due to red jello she consumed earlier. Bed low and locked.
[2020-09-04] MEDS: Dyna-Hex 2% Top Sol 2oz TOPIC SCH (19:46)
[2020-09-04] MEDS: TPN IV SCH ×2 (19:47)
[2020-09-04] MEDS: [UNRECOGNIZED DRUG - OTHER] IV SCH ×2 (19:47)
[2020-09-05] VITALS: BP 110/62
[2020-09-05 04:00] VITALS: BP 119/65
[2020-09-05] MEDS: Dicyclomine HCl 10mg/5ml oral soln ORAL SCH ×3 (06:04→21:43)
[2020-09-05] MEDS: NovoLOG Insulin Flexpen SUBQ SCH ×4 (06:28→23:11)
[2020-09-05] MEDS: PCA shift volume MISC SCH (07:18)
--- NOTE | 2020-09-05 07:19 | NUR ---
Report given to JESUS Eng
--- NOTE | 2020-09-05 07:45 | NUR ---
NURSE NOTES: Received report from Archana Oliveros. Patient in bed awake and oriented. Breathing even and unlabored in room air. No acute distress noted. Denied any pain or discomfort at this time. PICC patent and running TPN and IVF ordered. Ileo cath draining to gravity. INDUSTRIAL CUSTODIAN setting checked. Bed in locked and lowest position with call light within reach. Will continue plan of care
--- NOTE | 2020-09-05 07:56 | 48 Hour Post Anesthesia Eval ---
Post Anesthesia Evaluation Procedure: Pouch endoscopy Date of Evaluation: Sep 05, 2020 Time of Evaluation: 07:54 Blood Pressure Systolic: 118 0: 76 Pulse Rate: 78 Respiratory Rate: 20 Temperature (Fahrenheit): 97.5 O2 Sat by Pulse Oximetry: 98 Airway: patent Nausea: No Vomiting: No Pain Intensity: 1 Hydration Status: adequate Cardiopulmonary Status: stable Mental Status/LOC: patient returned to baseline Follow-up Care/Observations: n/a Post-Anesthesia Complications: none Follow-up care needed: N/A Librado Jacob MD Sep 05, 2020 07:55
[2020-09-05 08:00] VITALS: BP_SYST 129; BP_DIAS 66; BP_DIAS 84
[2020-09-05] MEDS ORDERED: Lactulose 20gm/30ml UDC ORAL PRN (08:30)
--- NOTE | 2020-09-05 08:37 | General Progress Note ---
Subjective ROS Limited/Unobtainable: No Allergies: Coded Allergies: MORPHINE (Verified Allergy, Severe, 08/28/20) PENICILLINS (Verified Allergy, Severe, 08/28/20) Objective Last 24 Hour Vital Signs Date Time Temp Pulse Resp B/P (MAP) Pulse Ox O2 Delivery O2 Flow Rate FiO2 09/05/20 08:00 73 17 99 09/05/20 08:00 97.9 73 17 129/84 (99) 99 09/05/20 07:55 78 20 98 09/05/20 04:00 97.3 76 17 119/65 (83) 99 09/05/20 04:00 76 17 99 09/05/20 00:00 77 18 99 09/04/20 20:17 Room Air 09/04/20 20:00 98.8 81 18 108/61 (77) 99 09/04/20 20:00 81 18 99 09/04/20 16:00 98.2 72 18 150/89 (109) 95 09/04/20 16:00 72 16 98 09/04/20 12:00 73 16 98 09/04/20 12:00 98.5 73 18 131/75 (93) 98 09/04/20 09:52 96 Room Air 21 09/04/20 09:00 Room Air Intake and Output 09/04/20 09/05/20 19:00 07:00 Intake Total 900 ml 300 ml Output Total 2120 ml 1820 ml Balance -1220 ml -1520 ml Intake Oral 900 ml 300 ml Output Urine Total 1500 ml 1300 ml Other 620 ml 520 ml Laboratory Tests 09/04/20 11:48: POC Whole Blood Glucose 252H 09/04/20 18:06: POC Whole Blood Glucose 272H 09/04/20 23:53: POC Whole Blood Glucose [Pending] 09/05/20 08:17: White Blood Count [Pending], Red Blood Count [Pending], Hemoglobin [Pending], Hematocrit [Pending], Mean Corpuscular Volume [Pending], Mean Corpuscular Hemoglobin [Pending], Mean Corpuscular Hemoglobin Concent [Pending], Red Cell Distribution Width [Pending], Platelet Count [Pending], Mean Platelet Volume [Pending], Neutrophils (%) (Auto) [Pending], Lymphocytes (%) (Auto) [Pending], Monocytes (%) (Auto) [Pending], Eosinophils (%) (Auto) [Pending], Basophils (%) (Auto) [Pending], Sodium Level [Pending], Potassium Level [Pending], Chloride Level [Pending], Carbon Dioxide Level [Pending], Blood Urea Nitrogen [Pending], Creatinine [Pending], Estimat Glomerular Filtration Rate [Pending], Glucose Level [Pending], Calcium Level [Pending], Phosphorus Level [Pending], Magnesium Level [Pending], Total Bilirubin [Pending], Aspartate Amino Transf (AST/SGOT) [Pending], Alanine Aminotransferase (ALT/SGPT) [Pending], Alkaline Phosphatase [Pending], Total Protein [Pending], Albumin [Pending], Globulin [Pending] Height (Feet): 5 Height (Inches): 5.00 Weight (Pounds): 190 General Appearance: no apparent distress EENT: normal ENT inspection Neck: normal alignment Cardiovascular: normal rate Respiratory/Chest: decreased breath sounds Abdomen: normal bowel sounds, non tender, soft Extremities: non-tender Assessment/Plan Assessment/Plan: abd pain DM UC ? intestinal stricture s/p pouchoscopy Bentyl>>> improved her symptoms advance diet diet if ok with surg fu surg recs Alfa Brown MD Sep 05, 2020 08:37
--- NOTE | 2020-09-05 08:40 | General Progress Note ---
Progress Note Progress Note Long discussion with Dr. Brown and Dr. Christiansen (second opinion consultation yesterday) She feels much better with Bentyl per Dr. Brown orders Tolerating clear liquids Abdomen soft Urine 2800 BCIR ileo 1140 Labs pending imp: Improved Plan: BCIR regular diet Start RN supervised BCIR self-intubations q3-4h and prn, overnight prn continue TPN today, I&O lactulose QD prn thick effluent d/c ADDICTIONS RECOVERY SPECIALIST Fidel Mccain MD Sep 05, 2020 08:40
[2020-09-05 08:46] LABS: BASOPHILS % (AUTO) 1.6 % (0.0-2.0); EOSINOPHILS % (AUTO) 2.8 % (0.0-3.0); HEMATOCRIT 43.6 % (37.0-47.0); HEMOGLOBIN 14.2 G/DL (12.0-16.0); LYMPHOCYTES % (AUTO) 24.4 % (20.0-45.0); MEAN CORPUSCULAR VOLUME 93 FL (80-99); MONOCYTES % (AUTO) 8.4 % (1.0-10.0); NEUTROPHILS % (AUTO) 62.8 % (45.0-75.0); PLATELET COUNT 219 K/UL (150-450); RED BLOOD COUNT 4.71 M/UL (4.20-5.40); RED CELL DISTRIBUTION WIDTH 13.1 % (11.6-14.8); WHITE BLOOD COUNT 8.3 K/UL (4.8-10.8)
[2020-09-05 08:57] LABS: ALANINE AMINOTRANSFERASE 18 U/L (12-78); ALBUMIN 3.2 G/DL (3.4-5.0); ALBUMIN/GLOBULIN RATIO 0.8 (1.0-2.7); ALKALINE PHOSPHATASE 68 U/L (46-116); ANION GAP 5 mmol/L (5-15); ASPARTATE AMINO TRANSFERASE 28 U/L (15-37); BILIRUBIN,TOTAL 0.5 MG/DL (0.2-1.0); BLOOD UREA NITROGEN 13 mg/dL (7-18); CALCIUM 9.2 MG/DL (8.5-10.1); CARBON DIOXIDE 27 MMOL/L (21-32); CHLORIDE 101 MMOL/L (98-107); CREATININE 0.8 MG/DL (0.55-1.30); PHOSPHORUS 2.1 MG/DL (2.5-4.9); POTASSIUM 5.6 MMOL/L (3.5-5.1); SODIUM 132 MMOL/L (136-145)
--- NOTE | 2020-09-05 09:23 | NUR ---
NURSE NOTES: Noted sodium 132 L. aware and received order to discontinue current IVF order. Carried out.
--- NOTE | 2020-09-05 11:19 | NUR ---
CASE MANAGEMENT:REVIEW 09/05/20 SI: IZA CONTINENT ILEOSTOMY MALFUNCTION ABDOMINAL PAIN...S/P PUSH ENTEROSCOPY 97.9 73 17 129/84 99% ON RA NA-132 K+5.6 GLUCOSE+264 IS: TPN/IL @74/HR DICYCLOMINE PO Q8HRS KLONOPIN PO QHS DILAUDID SQ Q4HRS PRN PAIN VIT K SQ Q WEEK : MED/SURG STATUS 3 EAST PLAN: DC ART APPRAISER PUMP CONTINUE TPN START BCIR REGULAR DIET START RN SUPERVISED INTUBATION COUCH POUCH TO CONTINUOS DRAINAGE
[2020-09-05 12:00] VITALS: BP 130/79
--- NOTE | 2020-09-05 12:00 | NUR ---
NURSE NOTES: Pt able to do self intubation using Korina catheter with supervision by nurse. Output 150cc, light brown liquid. Pt no c/o pain or discomfort during intubation. No flush needed at this time.
--- NOTE | 2020-09-05 12:36 | NUR ---
RD ASSESSMENT & RECOMMENDATIONS SEE CARE ACTIVITY FOR COMPLETE ASSESSMENT DAILY ESTIMATED NEEDS: Needs based on Pending surgery 59.7kg abw 25-30 kcals/kg 3485-4262 total kcals 1-2 g protein/kg 60-119 g total protein 25-30 mL/kg 6787-5680 total fluid mLs NUTRITION DIAGNOSIS: Altered GI function r/t ileostomy malfunction as evidenced by s/p endoscopy, pending possible ex lap, NPO status, TPN ordered. CURRENT DIET: CLD-> now regular PO DIET RECOMMENDATIONS: Low Fiber/ Low Residue diet PARENTERAL NUTRITION RECOMMENDATIONS: TPN Comment: - D18% with AA 5.4% @65ml/hr + IL20% @9ml/hr-> alll 3:1, goal of 74ml/hr. - Start rate per MD - GIR<5 - %fat <30% REC to taper down TPN, begin to lower by 25-50% now that diet has been advanced ADDITIONAL RECOMMENDATIONS: 1) H/o DM, will monitor BG, need for formulary change. 2) Check LFT's, lytes, BG w/ TPN 3) Obtain a standing wt Stated wt 165# vs EMR wt 175# 4) rec to hold added D5 in light of elevated BG (200's) -> diet advanced, rec to lower taper off TPN
[2020-09-05 16:00] VITALS: BP 132/77
--- NOTE | 2020-09-05 16:00 | NUR ---
NURSE NOTES: Pt intubated by herself supervised by nurse. 100cc output little thicker than previous output at noon. Addendum: 09/05/20 at 1637 by Jeri Aguilar RN Received new order from Dr. Mccain for Vit C 500mg PO once for thick output. Order carried out.
[2020-09-05] MEDS ORDERED: Ascorbic Acid 500mg tab ORAL SCH (16:30)
--- NOTE | 2020-09-05 16:47 | Consultation ---
History of Present Illness General Date patient seen: Sep 04, 2020 Reason for Hospitalization: Abdominal Pain Present Illness HPI This is a very pleasant 54-year-old female with history of continent ileostomy who presented with abdominal pain bloating who had a history of obstruction in the past. She has been admitted and under the care of Dr. Mccain and I have been asked to evaluate for second opinion surgical. We have had considerations for potential operative intervention given her symptoms but multiple imaging studies not demonstrated any organic finding at this time. Patient seen, patient evaluate, chart reviewed. Patient states that she has been well until proximately 4 months ago when after heavy meal began to feel some discomfort since then she is off some left lower quadrant bloating after meals unrelated to her continent ileostomy and therefore she has had significant concerns including that of a potential obstruction she said had a bad obstruction in the past. She came here for evaluation at which time CT scan was performed and results as below as well as GI contrast study. She has been catheterized and on a clear liquid diet currently tolerating. Currently states she is feeling little bit better does have some GERD. Of note history of gastric sleeve. Currently no n ausea vomiting fever chills. Labs otherwise benign. Imaging reviewed. Allergies: Coded Allergies: MORPHINE (Verified Allergy, Severe, 08/28/20) PENICILLINS (Verified Allergy, Severe, 08/28/20) COVID-19 Screening Contact w/high risk pt: No Experienced COVID-19 symptoms?: No Medication History Scheduled Clonazepam (Clonazepam), 1 MG PO BEDTIME, (Reported) Progesterone,Micronized (Progesterone), 200 MG PO BEDTIME, (Reported) Suvorexant (Belsomra), 15 MG PO BEDTIME, (Reported) Thyroid* ([place] Thyroid*), 60 MG ORAL BEFORE BREAKFAST, (Reported) Patient History History Provided By: Patient, Medical Record, PMD Healthcare decision maker Resuscitation status Advanced Directive on File Past Medical/Surgical History Past Medical/Surgical History: (1) Abdominal pain Review of Systems Review of Symptoms General ROS: no weight loss or fever Psychological ROS: no depression or mood changes, no memory loss Ophthalmic ROS: no visual changes or eye irritation ENT ROS: no nasal congestion, hearing loss, dizziness Allergy and Immunology ROS: no allergic symptoms or urticaria Hematological and Lymphatic ROS: no swollen glands, unusual bleeding or bruising Endocrine ROS: no polyuria, polydipsia, weight changes, temperature intolerance Respiratory ROS: no cough, shortness of breath, or wheezing Cardiovascular ROS: no chest pain or dyspnea on exertion Gastrointestinal ROS: denies abdominal pain, bright red blood in stool. Musculoskeletal ROS: no myalgias or arthralgias Neurological ROS: no TIA or stroke symptoms Dermatological ROS: no new or changing skin lesions, rashes or pruritis Physical Exam Physical Exam General appearance: alert, cooperative, no distress, appears stated age Head: Normocephalic, without obvious abnormality, atraumatic Eyes: conjunctivae/corneas clear. PERRL, EOM's intact. Fundi benign Throat: Lips, mucosa, and tongue normal. Teeth and gums normal Neck: supple, symmetrical, trachea midline, no adenopathy, thyroid: not enlarged, symmetric, no tenderness/mass/nodules, no carotid bruit and no JVD Lungs: clear to auscultation bilaterally Heart: regular rate and rhythm, S1, S2 normal, no murmur, click, rub or gallop Abdomen: soft, non-tender. Bowel sounds normal. No masses, no organomegaly RLQ ostomy, well healed midline Extremities: extremities normal, atraumatic, no cyanosis or edema Pulses: 2+ and symmetric Skin: Skin color, texture, turgor normal. No rashes or lesions Neurologic: Grossly normal Last 24 Hour Vital Signs Date Time Temp Pulse Resp B/P (MAP) Pulse Ox O2 Delivery O2 Flow Rate FiO2 09/05/20 16:00 98.2 90 18 132/77 (95) 98 09/05/20 12:00 98.2 77 17 130/79 (96) 96 09/05/20 09:00 Room Air 09/05/20 08:00 73 17 99 09/05/20 08:00 97.9 73 17 129/84 (99) 99 09/05/20 07:55 78 20 98 09/05/20 04:00 97.3 76 17 119/65 (83) 99 09/05/20 04:00 76 17 99 09/05/20 00:00 77 18 99 09/04/20 20:17 Room Air 09/04/20 20:00 98.8 81 18 108/61 (77) 99 09/04/20 20:00 81 18 99 Intake and Output 09/04/20 09/05/20 19:00 07:00 Intake Total 900 ml 300 ml Output Total 2120 ml 1820 ml Balance -1220 ml -1520 ml Intake Oral 900 ml 300 ml Output Urine Total 1500 ml 1300 ml Other 620 ml 520 ml Laboratory Tests Test 09/04/20 18:06 09/04/20 23:53 09/05/20 08:17 POC Whole Blood Glucose 272 MG/DL (74-106) H Pending White Blood Count 8.3 K/UL (4.8-10.8) Red Blood Count 4.71 M/UL (4.20-5.40) Hemoglobin 14.2 G/DL (12.0-16.0) Hematocrit 43.6 % (37.0-47.0) Mean Corpuscular Volume 93 FL (80-99) Mean Corpuscular Hemoglobin 30.2 PG (27.0-31.0) Mean Corpuscular Hemoglobin Concent 32.6 G/DL (32.0-36.0) Red Cell Distribution Width 13.1 % (11.6-14.8) Platelet Count 219 K/UL (150-450) Mean Platelet Volume 7.8 FL (6.5-10.1) Neutrophils (%) (Auto) 62.8 % (45.0-75.0) Lymphocytes (%) (Auto) 24.4 % (20.0-45.0) Monocytes (%) (Auto) 8.4 % (1.0-10.0) Eosinophils (%) (Auto) 2.8 % (0.0-3.0) Basophils (%) (Auto) 1.6 % (0.0-2.0) Sodium Level 132 MMOL/L (136-145) L Potassium Level 5.6 MMOL/L (3.5-5.1) H Chloride Level 101 MMOL/L (98-107) Carbon Dioxide Level 27 MMOL/L (21-32) Anion Gap 5 mmol/L (5-15) Blood Urea Nitrogen 13 mg/dL (7-18) Creatinine 0.8 MG/DL (0.55-1.30) Estimat Glomerular Filtration Rate > 60 mL/min (>60) Glucose Level 264 MG/DL (74-106) H Calcium Level 9.2 MG/DL (8.5-10.1) Phosphorus Level 2.1 MG/DL (2.5-4.9) L Magnesium Level 1.9 MG/DL (1.8-2.4) Total Bilirubin 0.5 MG/DL (0.2-1.0) Aspartate Amino Transf (AST/SGOT) 28 U/L (15-37) Alanine Aminotransferase (ALT/SGPT) 18 U/L (12-78) Alkaline Phosphatase 68 U/L (46-116) Total Protein 7.2 G/DL (6.4-8.2) Albumin 3.2 G/DL (3.4-5.0) L Globulin 4.0 g/dL Albumin/Globulin Ratio 0.8 (1.0-2.7) L Height (Feet): 5 Height (Inches): 5.00 Weight (Pounds): 190 Medications Current Medications Medications (Trade) Dose Ordered Sig/Kane Route PRN Reason Start Time Stop Time Status Last Admin Dose Admin Acetaminophen (Tylenol) 650 mg Q4H PRN ORAL Mild Pain (Pain Scale 1-3) 08/28/20 17:15 09/27/20 17:14 Acetaminophen/ Hydrocodone Bitart ([place] 5/325) 1 tab Q4H PRN ORAL Moderate Breakthru Pain (5-7) 09/03/20 09:15 09/10/20 09:14 Ascorbic Acid (Vitamin C) 500 mg NEEDED PRN ORAL thick ileostomy effluent 09/05/20 16:45 10/05/20 16:44 Ascorbic Acid (Vitamin C) 500 mg ONCE ORAL 09/05/20 16:30 09/05/20 17:30 09/05/20 16:38 Chlorhexidine Gluconate (Mami-Hex 2%) 1 applic DAILY@2000 TOPIC 08/28/20 20:00 11/26/20 19:59 09/04/20 19:46 Clonazepam (KlonoPIN) 1 mg BEDTIME ORAL 09/03/20 21:00 09/10/20 20:59 09/04/20 20:43 Dextrose 1,000 ml @ 0 mls/hr Q24H PRN IV PN interrupted or unavailable 08/30/20 20:00 09/29/20 19:59 Dextrose (Dextrose 50%) 25 ml Q30M PRN IV Hypoglycemia 08/31/20 00:00 11/29/20 00:00 Dextrose (Dextrose 50%) 50 ml Q30M PRN IV Hypoglycemia 08/31/20 00:00 11/29/20 00:00 Dicyclomine HCl (Bentyl) 10 mg QIDPRN PRN ORAL Abdominal cramps 09/02/20 12:00 12/01/20 11:59 Dicyclomine HCl (Bentyl) 20 mg EVERY 8 HOURS ORAL 09/04/20 14:00 12/03/20 13:59 09/05/20 14:24 Fat Emulsion Intravenous 216 ml/Amino Acids/ Electrolytes/ Dextrose 1,776 ml @ 74 mls/hr Q24H IV 08/30/20 20:00 11/28/20 19:59 09/04/20 19:47 Hydromorphone HCl (Dilaudid) 1 mg Q4H PRN SUBQ Severe Breakthru Pain (>7) 09/03/20 09:15 09/10/20 09:14 Insulin Aspart (NovoLOG) Q6HR SUBQ 08/31/20 00:00 11/29/20 00:00 09/05/20 12:20 Lactulose (Cephulac) 30 gm DAILYPRN PRN ORAL thick ileostomy effluent 09/05/20 08:30 10/05/20 08:29 Lorazepam (Ativan) 1 mg Q4H PRN ORAL anxiety 09/02/20 09:15 09/09/20 09:14 Lorazepam (Ativan) 1 mg Q4H PRN SL Abdominal cramps 09/02/20 09:15 09/09/20 09:14 Ondansetron HCl (Zofran) 4 mg Q4H PRN IVP Nausea & Vomiting 08/28/20 12:30 09/27/20 12:29 09/02/20 04:28 Patient Own Medication (Patient's Own Med) 30 ml DAILY@1730 ORAL 08/29/20 17:30 09/05/20 23:59 09/04/20 18:02 Patient Own Medication (Patient's Own Med) 30 ml DAILY@1730 ORAL 09/06/20 17:30 10/06/20 17:29 Phytonadione (Vitamin K) 10 mg ONCE A WEEK SUBQ 09/06/20 09:00 12/05/20 08:59 Prochlorperazine (Compazine) 10 mg Q6H PRN IVP Nausea & Vomiting 08/29/20 08:15 09/28/20 08:14 09/03/20 21:01 Thyroid ([place] Thyroid) 60 mg BEFORE BREAKFAST ORAL 08/29/20 06:30 09/28/20 06:29 09/05/20 06:04 Assessment/Plan Problem List: (1) Abdominal pain Assessment & Plan: 54-year-old female with history of, ileostomy, gastric sleeve, multiple prior abdominal surgeries including 1 for bowel obstruction. Presented with abdominal pain and bloating. Since she has been in the hospital states she is feeling better. Currently no pain no bloating no nausea no vomiting. Intermittent GERD symptoms improving. She has had a scope GI contrast study CT scan as below. Noobstruction or significant pathology surgical identified. She does have some fluid collections around the pelvis which could be potential ovary related or simple fluid collections that are not completely abnormal after multiple large abdominal surgeries. she has been significantly improving at this time and therefore do not recommend acute surgical intervention. Resume diet allow for self intubations DC TPN antibiotics fluids and monitor clinically. If improving okay to discharge and follow-up as needed. Thank you for letting participate patient's care There is a right lower quadrant continent ileostomy. Contrast is seen within the ileostomy pouch as well as within the catheter. The catheter is positioned well, deep within the ileostomy, tip well beyond the nipple. No small bowel distention. No free or loculated intraperitoneal gas or fluid is evident. Patient is status post near total colectomy, with a small Martha pouch still present. The patient is status post gastric surgery, which appears to be prior gastric sleeve surgery. There is mild wall thickening of the distal esophagus. There is suggestion of a small hiatal hernia. The liver is unremarkable. The gallbladder has been removed. There is no biliary ductal dilatation. The pancreas is unremarkable. Spleen demonstrates a subcentimeter low attenuation lesion centrally. The adrenals are unremarkable. The kidneys are unremarkable. No renal or ureteral calculi, hydronephrosis, nor hydroureter. The bladder is unremarkable. Prominent nodes are seen in the mesenteric root inferiorly There is a cystic mass in the pelvis, overall dimensions approximately 8.1 x 4.6 x 5.1 cm. This consists of 2 larger cysts by a septation and a smaller cyst. Wall is mostly imperceptible, but some portion of a perceptible wall is seen at the junction of the 2 larger cysts. The uterus is absent and there is no evidence of a left ovary. The included lung bases are clear. The bones are unremarkable Impression: Postsurgical changes, as described, with evidence of near total colectomy and right lower quadrant continent ileostomy. No evidence of bowel obstruction, ileostomy dysfunction, or abscess Cystic mass within the right side of the pelvis, possibly a right ovarian cystic lesion. The possibility of cystic neoplasm should be considered. Alternatively, this could represent a postoperative process such as a lymphocele. Further evaluation with ultrasound and gynecological evaluation is recommended if this has not been worked up previously. Mild esophageal wall thickening, could indicate esophagitis. There is also small hiatal hernia Other postsurgical changes as described, including prior cholecystectomy, hysterectomy, and gastric sleeve surgery Prominent mesenteric root nodes, nonspecific [employer] Operations Manager fluoroscopic images demonstrate surgical material in the abdomen. No distended loops of small bowel seen. No appreciable free intraperitoneal air. Limited esophagram demonstrates no appreciable intraluminal mass. Contrast passes through the esophagus without impediment. There are tertiary contractions of the esophagus. No biliary of contrast passage across the gastroesophageal junction. Patient is status post sleeve gastrectomy. There is no delay in transit of contrast out of the stomach. The ligament of Treitz is located in its normal location to the left of midline. Small bowel series was performed. By 15 minutes after contrast administration contrast is transmitted through the entire bowel and is noted within the pouch of the continent ileostomy. There is no evidence of small bowel obstruction. IMPRESSION: No evidence of small bowel obstruction. ICD Codes: R10.9 - Unspecified abdominal pain SNOMED: [id number] Qualifiers: Qualified Codes: R10.84 - Generalized abdominal pain Kenyon Christiansen Sep 05, 2020 16:47
[2020-09-05] MEDS: SPIRONOLACTONE ORAL SCH (17:41)
--- NOTE | 2020-09-05 18:18 | NUR ---
INSURANCE CLINICALS AND REVIEW FAXED TO [facility] T: [phone] F: [phone]
--- NOTE | 2020-09-05 19:14 | NUR ---
NURSE HAND-OFF: Important Events on Shift:[Self intubation with supervision with no issue, no pain. 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 Vital Sign Comment: [stable] Latest Dumont Fall Score: 35 Fall Risk: Medium Risk Safety Measures: Call light Within Reach, Bed Alarm Zone 1, Side Rails Side Rails x2, Bed position Low and Locked. Fall Precautions: Yellow Socks Door Sign Patient Fall Education Report given to [JESUS Fleming].
--- NOTE | 2020-09-05 19:50 | NUR ---
NURSE NOTES: Received report from JESUS Eng and rounds made. Received pt sitting up in bed AOx4, denies any pain, no nausea or vomiting. Piccline CARLITOS patent, clean, dry and intact .TPN infusing as ordered. NAD noted. Bed in lowest position. Call light within received. Side rails up x 2. Will continue to monitor.
[2020-09-05 20:00] VITALS: BP 134/79
[2020-09-05] MEDS: TPN IV SCH ×2 (20:25)
[2020-09-05] MEDS: [UNRECOGNIZED DRUG - OTHER] IV SCH ×2 (20:25)
[2020-09-05] MEDS: Dyna-Hex 2% Top Sol 2oz TOPIC SCH (20:26)
[2020-09-06 04:00] VITALS: BP 110/69
[2020-09-06] MEDS: NovoLOG Insulin Flexpen SUBQ SCH ×3 (06:00→17:30)
[2020-09-06] MEDS: Dicyclomine HCl 10mg/5ml oral soln ORAL SCH (06:24)
[2020-09-06 07:11] LABS: BASOPHILS % (AUTO) 0.9 % (0.0-2.0); HEMATOCRIT 44.2 % (37.0-47.0); HEMOGLOBIN 14.4 G/DL (12.0-16.0); LYMPHOCYTES % (AUTO) 31.5 % (20.0-45.0); MEAN CORPUSCULAR VOLUME 93 FL (80-99); MONOCYTES % (AUTO) 7.1 % (1.0-10.0); NEUTROPHILS % (AUTO) 57.5 % (45.0-75.0); PLATELET COUNT 234 K/UL (150-450); RED BLOOD COUNT 4.78 M/UL (4.20-5.40); RED CELL DISTRIBUTION WIDTH 13.2 % (11.6-14.8); WHITE BLOOD COUNT 9.6 K/UL (4.8-10.8)
[2020-09-06 07:12] LABS: ALANINE AMINOTRANSFERASE 13 U/L (12-78); ALBUMIN 3.4 G/DL (3.4-5.0); ALBUMIN/GLOBULIN RATIO 0.9 (1.0-2.7); ALKALINE PHOSPHATASE 68 U/L (46-116); ANION GAP 10 mmol/L (5-15); ASPARTATE AMINO TRANSFERASE 13 U/L (15-37); BILIRUBIN,TOTAL 0.4 MG/DL (0.2-1.0); BLOOD UREA NITROGEN 19 mg/dL (7-18); CALCIUM 9.6 MG/DL (8.5-10.1); CARBON DIOXIDE 25 MMOL/L (21-32); CHLORIDE 101 MMOL/L (98-107); CREATININE 0.9 MG/DL (0.55-1.30); PHOSPHORUS 3.2 MG/DL (2.5-4.9); POTASSIUM 4.6 MMOL/L (3.5-5.1); SODIUM 136 MMOL/L (136-145)
--- NOTE | 2020-09-06 07:29 | NUR ---
NURSE NOTES: Received report from Pascual LEE. Patient is awake and oriented, in no distress, denies pain, self intubating without issue per report, tolerating regular diet. TPN infusing per order via CARLITOS PICC, dressing clean, dry, intact. Patient updated on plan of care. Side rails upx2, bed low and locked, call light within reach.
--- NOTE | 2020-09-06 07:29 | NUR ---
NURSE HAND-OFF: Important Events on Shift: Self inbutated without any problems Patient Status: Stable Diet: Regular Pending Orders: None Pending Results/Labs: None Pending MD notification: N/A Latest Vital Signs: Temperature 98.4 , Pulse 73 , B/P 110 /69 , Respiratory Rate 18 , O2 SAT 98 , Room Air, O2 Flow Rate 3 . Vital Sign Comment: Stable Latest Dumont Fall Score: 35 Fall Risk: Medium Risk Safety Measures: Call light Within Reach, Bed Alarm Zone 1, Side Rails Side Rails x2, Bed position Low and Locked. Fall Precautions: Yellow Socks Door Sign Patient Fall Education Report given to JESUS Borrero
[2020-09-06 08:00] VITALS: BP 137/81
[2020-09-06] MEDS ORDERED: Dicyclomine HCl 10mg/5ml oral soln ORAL PRN (08:41)
--- NOTE | 2020-09-06 08:41 | General Progress Note ---
Progress Note Progress Note Doing well with low residue diet and self-intubations of Renee Continent Ileostomy pouch. Taking Bentyl q8h. Feels well Abdomen soft, flat Urine 2300 BCIR ileo 450 Eating 60% WBC 9600 Hgb 14.4 BUN 19 Cr 0.9 Mg 1.7 albumin up 3.4 Imp: improved Plan; no indication for surgical exploration taper and d/c TPN tonight change Bentyl to prn q8h continue restricted roughage diet and q4h Renee pouch intubation infuse Mg IV Fidel Mccain MD Sep 06, 2020 08:41
[2020-09-06] MEDS ORDERED: Phytonadione 10 mg/mL 1ml amp SUBQ SCH (09:00)
--- NOTE | 2020-09-06 11:44 | General Progress Note ---
Subjective ROS Limited/Unobtainable: Yes Allergies: Coded Allergies: MORPHINE (Verified Allergy, Severe, 08/28/20) PENICILLINS (Verified Allergy, Severe, 08/28/20) Objective Last 24 Hour Vital Signs Date Time Temp Pulse Resp B/P (MAP) Pulse Ox O2 Delivery O2 Flow Rate FiO2 09/06/20 09:00 Room Air 09/06/20 08:00 97.9 87 16 137/81 (99) 96 09/06/20 04:00 98.4 73 18 110/69 (83) 98 09/05/20 21:00 Room Air 09/05/20 20:00 98.3 83 18 134/79 (97) 98 09/05/20 16:00 98.2 90 18 132/77 (95) 98 09/05/20 12:00 98.2 77 17 130/79 (96) 96 Intake and Output 09/05/20 09/06/20 19:00 07:00 Intake Total 1100 ml 980 ml Output Total 1950 ml 500 ml Balance -850 ml 480 ml Intake Oral 1100 ml 240 ml IV Total 740 ml Output Urine Total 1700 ml 300 ml Other 250 ml 200 ml Laboratory Tests 09/05/20 23:10: POC Whole Blood Glucose 298H 09/06/20 05:21: White Blood Count 9.6, Red Blood Count 4.78, Hemoglobin 14.4, Hematocrit 44.2, Mean Corpuscular Volume 93, Mean Corpuscular Hemoglobin 30.1, Mean Corpuscular Hemoglobin Concent 32.5, Red Cell Distribution Width 13.2, Platelet Count 234, Mean Platelet Volume 8.4, Neutrophils (%) (Auto) 57.5, Lymphocytes (%) (Auto) 31.5, Monocytes (%) (Auto) 7.1, Eosinophils (%) (Auto) 3.0, Basophils (%) (Auto) 0.9, Sodium Level 136, Potassium Level 4.6, Chloride Level 101, Carbon Dioxide Level 25, Anion Gap 10, Blood Urea Nitrogen 19H, Creatinine 0.9, Estimat Glomerular Filtration Rate > 60, Glucose Level 179H, Calcium Level 9.6, Phosphorus Level 3.2, Magnesium Level 1.7L, Total Bilirubin 0.4, Aspartate Amino Transf (AST/SGOT) 13L, Alanine Aminotransferase (ALT/SGPT) 13, Alkaline Phosphatase 68, Total Protein 7.2, Albumin 3.4, Globulin 3.8, Albumin/Globulin Ratio 0.9L Height (Feet): 5 Height (Inches): 5.00 Weight (Pounds): 190 General Appearance: no apparent distress EENT: normal ENT inspection Neck: supple Cardiovascular: normal rate Respiratory/Chest: decreased breath sounds Abdomen: normal bowel sounds, non tender, soft Extremities: non-tender Assessment/Plan Assessment/Plan: abd pain DM UC s/p pouchoscopy Bentyl>>> improved her symptoms on diet plan dc TPN fu surg recs Alfa Brown MD Sep 06, 2020 11:44
[2020-09-06 12:00] VITALS: BP 138/83
--- NOTE | 2020-09-06 12:16 | NUR ---
CASE MANAGEMENT:REVIEW 09/06/20 SI: COUCH CONTINENT ILEOSTOMY MALFUNCTION ABDOMINAL PAIN...S/P PUSH ENTEROSCOPY 98.0 80 16 138/83 97% ON RA MAG-1.7 IS: TPN/IL @74/HR KLONOPIN PO QHS DILAUDID SQ Q4HRS PRN PAIN VIT K SQ Q WEEK : MED/SURG STATUS 3 EAST PLAN: TAPER AND DC TPN BCIR REGULAR DIET RN SUPERVISED INTUBATION COUCH POUCH TO CONTINUOS DRAINAGE
--- NOTE | 2020-09-06 12:40 | NUR ---
INSURANCE CLINICALS AND REVIEW FAXED TO [facility] T: [phone] F: [phone] REF [id number]
[2020-09-06] MEDS: Ascorbic Acid 500mg tab ORAL PRN (14:05)
[2020-09-06 16:00] VITALS: BP 132/93
[2020-09-06] MEDS: SPIRONOLACTONE ORAL SCH (17:28)
--- NOTE | 2020-09-06 19:13 | NUR ---
NURSE HAND-OFF: Important Events on Shift: Patient self intubating without issue, tolerating diet well. Patient Status: stable Diet: Reg Pending Orders: n/a Pending Results/Labs: n/a Pending MD notification: n/a Latest Vital Signs: Temperature 98.3 , Pulse 82 , B/P 132 /93 , Respiratory Rate 16 , O2 SAT 96 Vital Sign Comment: VS stable Latest Dumont Fall Score: 35 Fall Risk: Medium Risk Safety Measures: Call light Within Reach, Bed Alarm Zone 1, Side Rails Side Rails x2, Bed position Low and Locked. Fall Precautions: Patient Fall Education Report given to Cortez LEE.
--- NOTE | 2020-09-06 19:17 | NUR ---
NURSE NOTES: received pt and report from JESUS Borrero. pt alert and oriented x 4 with no acute s/s of distress and no co pain at the moment. PICC line clean dry and intact and running TPN as ordered. Ileo site clean dry and intact and plugged, pt to self intubate. Plan of care discussed.
[2020-09-06 20:00] VITALS: BP 117/75
[2020-09-06] MEDS: Dyna-Hex 2% Top Sol 2oz TOPIC SCH (20:06)
[2020-09-07] VITALS: BP 109/69
--- NOTE | 2020-09-07 00:15 | NUR ---
NURSE NOTES: pt vital signs are stable. no co pain. no acute s/s of distress. pt currently asleep. TPN, bedside blood glucose checks, and insulin coverage d/c at [address] Mccain order. PICC line ports saline flushed, patent, and saline locked. pt stating no difficulty with self intubation.
[2020-09-07 04:00] VITALS: BP 112/64
--- NOTE | 2020-09-07 04:03 | NUR ---
NURSE NOTES: pt vital signs stable at this time. no acute distress observed. no co pain. pt is currently asleep.
--- NOTE | 2020-09-07 05:12 | Cardiology Report ---
APPROVED REPORT EKG Measurement Heart [id number] <Conclusion> Normal sinus rhythm Normal ECG
[2020-09-07] MEDS: Ascorbic Acid 500mg tab ORAL PRN (05:46)
--- NOTE | 2020-09-07 06:45 | NUR ---
NURSE HAND-OFF: Important Events on Shift:TPN d/c Patient Status: stable Diet: regular Pending Orders: NA Pending Results/Labs:NA Pending MD notification:NA Latest Vital Signs: Temperature 97.6 , Pulse 83 , B/P 112 /64 , Respiratory Rate 16 , O2 SAT 99 , Room Air, O2 Flow Rate 3 . Vital Sign Comment: stable through the shift Latest Dumont Fall Score: 35 Fall Risk: Medium Risk Safety Measures: Call light Within Reach, Bed Alarm Zone 1, Side Rails Side Rails x2, Bed position Low and Locked. Fall Precautions: Patient Fall Education Report given to JESUS Wild.
--- NOTE | 2020-09-07 07:05 | NUR ---
NURSE NOTES: Handoff received from Cortez RN. PAtient is awake and alert, no acute signs of distress noted, breathing is even and unlabored on room air. CARLITOS PICC is intact and saline locked. ileo is patent and patient is self intubating. Bed is low and locked, side rails up x2, call light is within reach.
[2020-09-07 08:00] VITALS: BP 131/82
--- NOTE | 2020-09-07 09:58 | NUR ---
RD ASSESSMENT & RECOMMENDATIONS SEE CARE ACTIVITY FOR COMPLETE ASSESSMENT DAILY ESTIMATED NEEDS: Needs based on Pending surgery 59.7kg abw 25-30 kcals/kg 9890-1173 total kcals 1-2 g protein/kg 60-119 g total protein 25-30 mL/kg 1793-2777 total fluid mLs NUTRITION DIAGNOSIS: Altered GI function r/t ileostomy malfunction as evidenced by s/p endoscopy, TPN now off, diet advanced. CURRENT DIET: CLD-> now regular PO DIET RECOMMENDATIONS: Low Fiber/ Low Residue diet - TPN now off ADDITIONAL RECOMMENDATIONS: 1) H/o DM, will monitor BG, need for formulary change- TPN now DC 2) Check LFT's, lytes, BG w/ TPN- TPN now DC 3) Obtain a standing wt Stated wt 165# vs EMR wt 175# 4) rec to hold added D5 in light of elevated BG -> diet advanced, monitor tolerance .
--- NOTE | 2020-09-07 10:43 | General Progress Note ---
Progress Note Progress Note AVSS doing well now with occasional bentyl po, eating fine, intubating well with good Renee pouch ileo output Abdomen soft I&O satisf Mg 2.0 Imp: Improved Plan; continue RN supervised BCIR self-intubations anticipate discharge in AM if stable Rx Bentyl 20mg #40 one po q8h prn abdominal cramps remove PICC line now Fidel Mccain MD Sep 07, 2020 10:43
--- NOTE | 2020-09-07 11:18 | General Progress Note ---
Subjective ROS Limited/Unobtainable: Yes Allergies: Coded Allergies: MORPHINE (Verified Allergy, Severe, 08/28/20) PENICILLINS (Verified Allergy, Severe, 08/28/20) Objective Last 24 Hour Vital Signs Date Time Temp Pulse Resp B/P (MAP) Pulse Ox O2 Delivery O2 Flow Rate FiO2 09/07/20 09:00 Room Air 09/07/20 08:00 97.4 88 18 131/82 (98) 96 09/07/20 04:00 97.6 83 16 112/64 (80) 99 09/07/20 00:00 98.1 82 20 109/69 (82) 96 09/06/20 20:29 Room Air 09/06/20 20:00 98.2 80 16 117/75 (89) 97 09/06/20 16:00 98.3 82 16 132/93 (106) 96 09/06/20 12:00 98.0 80 16 138/83 (101) 97 Intake and Output 0 09/06/20 09/07/20 19:00 07:00 Intake Total 2188 ml 600 ml Output Total 2685 ml 1130 ml Balance -497 ml -530 ml Intake Oral 900 ml 600 ml IV Total 1288 ml Output Urine Total 2000 ml 900 ml Other 685 ml 230 ml # Voids 2 Laboratory Tests 09/06/20 17:19: POC Whole Blood Glucose 272H 09/07/20 03:30: Magnesium Level 2.0 Height (Feet): 5 Height (Inches): 5.00 Weight (Pounds): 190 General Appearance: no apparent distress EENT: normal ENT inspection Neck: supple Cardiovascular: normal rate Respiratory/Chest: decreased breath sounds Abdomen: normal bowel sounds, non tender, soft Extremities: non-tender Assessment/Plan Assessment/Plan: abd pain DM UC s/p pouchoscopy Bentyl>>> improved her symptoms on diet off TPN fu surg recs Alfa Brown MD Sep 07, 2020 11:18
[2020-09-07 11:47] VITALS: BP 130/85
--- NOTE | 2020-09-07 13:04 | NUR ---
CASE MANAGEMENT:REVIEW 09/07/20 SI: IZA CONTINENT ILEOSTOMY MALFUNCTION ABDOMINAL PAIN...S/P PUSH ENTEROSCOPY 98.9 93 18 130/85 96% ON RA IS: BENTYL PO Q8HRS PRN VIT C PO PRN KLONOPIN PO QHS DILAUDID SQ Q4HRS PRN PAIN VIT K SQ Q WEEK THYROID PO QAM : MED/SURG STATUS 3 EAST PLAN: DC PICC LINE CONTINUE RN SUPERVISED BCIR SELF INTUBATIONS ANTICIPATE DISCHARGE IN AM IF STABLE
--- NOTE | 2020-09-07 15:00 | NUR ---
NURSE NOTES: Discharge supplies and education provided, patient's home medication also returned.
[2020-09-07 16:00] VITALS: BP 121/64
--- NOTE | 2020-09-07 16:05 | NUR ---
INSURANCE CLINICALS AND REVIEW FAXED TO [facility] T: [phone] F: [phone]
[2020-09-07] MEDS: SPIRONOLACTONE ORAL SCH (17:50)
--- NOTE | 2020-09-07 18:00 | NUR ---
NURSE NOTES: total urine output: 1100 true ileo output: 475 Patient did not complain of any pain or discomfort, she asked for one dose of bentyl in the AM, patient was able to intubate without difficulty. Patient received discharge medications and supplies and education about each. Patient is ready for discharge tomorrow AM.
--- NOTE | 2020-09-07 18:33 | NUR ---
NURSE HAND-OFF: Important Events on Shift:[discharge supplies and education] Patient Status: stable Diet: BCIR Pending Orders: DC tomorrow AM Pending Results/Labs: Pending MD notification: Latest Vital Signs: Temperature 98.2 , Pulse 86 , B/P 121 /64 , Respiratory Rate 18 , O2 SAT 96 , Room Air, O2 Flow Rate 3 . Vital Sign Comment: stable Latest Dumont Fall Score: 35 Fall Risk: Medium Risk Safety Measures: Call light Within Reach, Bed Alarm Zone 1, Side Rails Side Rails x2, Bed position Low and Locked. Fall Precautions: Patient Fall Education Report given to Cortez LEE
--- NOTE | 2020-09-07 19:20 | NUR ---
NURSE NOTES: received pt and report from JESUS Barrientos. pt alert and oriented x 4 with no acute s/s of distress and no co pain ath them moment. PICC line clean dry and intact and locked. will remove per Dr. das. BCIR self intubating, draining, no co. Plan of care discussed. D/c tomorrow.
--- NOTE | 2020-09-07 19:50 | NUR ---
NURSE NOTES: PICC line removed, no sign of infection at insertion site. tip intact. pt denies arm tenderness. bleeding minimal after removal, pressure dressing placed. pt tolerated procedure well.
[2020-09-07 20:00] VITALS: BP 131/80
[2020-09-07] MEDS: Dyna-Hex 2% Top Sol 2oz TOPIC SCH (20:00)
--- NOTE | 2020-09-08 | NUR ---
NURSE NOTES: pt asked to skip vitals at this time. pt currently asleep, no acute s/s of distress observed. no co pain.
[2020-09-08 04:00] VITALS: BP 107/58
--- NOTE | 2020-09-08 04:25 | NUR ---
NURSE NOTES: pt was asleep, no acute s/s of distress, no co abd pain or pain elsewhere. vitals stable.
[2020-09-08] MEDS: Ascorbic Acid 500mg tab ORAL PRN (05:29)
--- NOTE | 2020-09-08 07:09 | NUR ---
NURSE HAND-OFF: Important Events on Shift:NA, d/c today by 0900 Patient Status: stable Diet: Regular Pending Orders: NA Pending Results/Labs:NA Pending MD notification:NA Latest Vital Signs: Temperature 97.7 , Pulse 81 , B/P 107 /58 , Respiratory Rate 15 , O2 SAT 97 , Room Air, O2 Flow Rate 3 . Vital Sign Comment: stable through the shift Latest Dumont Fall Score: 35 Fall Risk: Medium Risk Safety Measures: Call light Within Reach, Bed Alarm Zone 1, Side Rails Side Rails x2, Bed position Low and Locked. Fall Precautions: Patient Fall Education Report given to JESUS Ocampo.
--- NOTE | 2020-09-08 07:24 | NUR ---
NURSE NOTES: Received pt from JESUS Toro, pt was resting comfortably, no acute distress, waiting for discharge, call light w/in reach.
[2020-09-08 08:00] VITALS: BP 134/85
--- NOTE | 2020-09-08 08:27 | General Progress Note ---
Progress Note Progress Note AVSS doing well with only occasional bentyl 20mg. Eating 75% BCIR diet Abdomen soft Urine 1800 BCIR ileo 725 Imp: Improved with abdominal pain resolved Plan: discharge with full instructions/limitations/supplies discussed/provided Rx - none f/u 2/4 and prn Fidel Mccain MD Sep 08, 2020 08:27
--- NOTE | 2020-09-08 09:00 | NUR ---
NURSE NOTES: discharge the patient w stable condition. D/C instruction was given. pt verbalized understanding
--- NOTE | 2020-09-10 00:59 | Procedure Note ---
DATE OF PROCEDURE: 09/03/2020 SURGEON: Alfa Brown MD ANESTHESIOLOGIST: Librado Jacob MD PROCEDURE: Pouchoscopy. INSTRUMENT: Olympus adult scope. INDICATION: Abdominal pain. The procedure, risks, benefits, and possible consequences, including hemorrhage, aspiration, perforation and infection, and alternative treatments, were explained to the patient/legal guardian by Dr. Alfa Brown and the patient/legal guardian understood and accepted these risks. DESCRIPTION OF PROCEDURE: After informed consent was obtained and the patient was adequately sedated, the Olympus upper endoscope was advanced through the opening of the pouch. There was a long segment before we got to the actual pouch. Then, the scope was advanced to the afferent loop, all the way up to 60 cm into the afferent loop. There was no evidence of any obvious stricture. No obvious bleeding. No obvious ulcerations. No obvious findings. At this time, the scope was retrieved and procedure was terminated. FINDINGS: Normal-looking afferent loop without any stricture. RECOMMENDATIONS: Follow up with Surgery for further recommendation. I want to thank Dr. Fidel Mccain for this kind referral. Alfa Brown M.D. DR: YOANDY JOB#: [id number] CC: Fidel Mccain M.D.; Fax#: [phone]
--- NOTE | 2020-09-13 12:42 | Discharge Summary ---
Discharge Summary Hospital Course Date of Admission Aug 28, 2020 at 11:06 Date of Discharge Sep 08, 2020 at 09:30 Admitting Diagnosis ABDOMINAL PAIN Reason for Hospitalization: abdominal pain and nausea with meals, need for possible surgery HPI Ashley Ibrahim is a 54 year old female who was admitted on Aug 28, 2020 at 11:06 for Abdominal Pain 54 years old female with past medical history of ulcerative colitis , s/p prior total colectomy with creation of a Renee continent ileostomy as well as revisions and bowel resection for obstruction as well as total abdominal hysterectomy and bilateral salpingo-oophorectomy , was doing well with her Renee pouch for many years intubating three times a day to evacuate stool and gas. For the past two months, she has had progressive pain in the left side of her abdomen and most recently developed nausea with meals and had to start on liquid only diet. She started to intubate 10 to 15 times a day to get relief but often there was no output of either stool or gas. The clinical picture was of a partial bowel obstruction in conjunction with the specialized Renee type of Kock pouch continent ileostomy. The patient presented to [facility] for definitive diagnosis, treatment, and likely surgery. The patient has only had pouchitis 5 times in the past 25 years and her symptoms were not consistent with that diagnosis. She has no difficulty with intubation and no incontinence. Consultations Dr. Brown GI specialist Dr. Christiansen general surgeon Procedures s/p 08/29/[address] Adán Renee continent ileostomy pouch endoscopy. S/P Pouchoscopy. Hospital Course Patient admitted to the hospital Patient was kept n.p.o. and provided with IV hydration Patient received PICC line due to difficult peripheral venous access Indwelling catheter was placed into Renee continent ileostomy and connected to continuous drainage Prothrombin time noted to be prolonged , and she received vitamin K intravenously Patient undergone stat CT scan of the abdomen and pelvis, which revealed postsurgical changes with evidence of near total colectomy and right lower quadrant continent ileostomy. No evidence of bowel obstruction, ileostomy dysfunction or abscess Cystic mass in the right side of the pelvis , possibly a right ovarian cystic lesion The possibility of cystic neoplasm should be considered. Alternatively this could represent a postoperative process such as lymphocele Patient subsequently undergone pelvic transvaginal ultrasound, which revealed 8 x 5 x 5 cm anechoic cystic mass in the pelvis to the right midline, co rresponding to finding reported on the CT scan Unlikely to represent a cystic ovarian neoplasm, given clinical history of remot e hysterectomy and bilateral oophorectomy, possibly representing a lymphocele, versus other process such as enteric duplication cyst Abdominal ultrasound revealed mildly increased hepatic echogenicity suggestive of mild steatosis.,status post cholecystectomy No biliary ductal dilatation. Pouchogram with small bowel series on 08/29 was unremarkable Pain management was addressed. N.p.o. status continued. Continuous drainage of Renee pouch was maintained. Patient started on TPN. Laboratory work-up was stable, except albumin 2.8. Stat KUB revealed nonobstructive bowel gas pattern. Upper GI small bowel x-ray revealed no evidence of small bowel obstruction. GI specialist followed. Patient subsequently undergone on 09/03 pouchoscopy due to concern of possible intestinal stricture, which revealed normal-looking afferent loop without any stricture. Patient started on clear liquid diet. Second opinion consulted with general surgery for need for exploratory laparotomy versus medical treatment. Bentyl improved patient's symptoms. Diet was slowly advanced as tolerated. Antiemetic provided as needed. Patient was able to tolerate diet and was advanced to BCIR regular diet. Patient started subsequently on RN supervised BCIR self intubation every 4 hours and as needed as needed for pain. Intake and output was closely monitored. Pain management initially provided with MANAGER DEVELOPMENT , and subsequently was discontinued as patient clinically improved. No indication for surgical exploration. TPN was tapered and discontinued. Patient was on restricted roughage diet and every 4 hours Renee pouch intubation. Magnesium was replaced. Prescription for Bentyl as needed for abdominal cramps provided. PICC line was discontinued. Patient clinically stabilized and was ready for discharge. FINAL DIAGNOSES 1. Abdominal pain, likely partial small bowel obstruction from adhesions or due to a stricture at the junction of the small bowel with her Renee continent ileostomy pouch. 2. History of ulcerative colitis. 3. STATUS POST MULTIPLE ABDOMINAL OPERATIONS: 3.1. 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 3.2. Abdomino-perineal proctectomy and creation of Renee type of Kock pouch continent ileostomy August 1995. 3.3. Total abdominal hysterectomy and bilateral salpingo-oophorectomy with repair of ventral hernia in 2002. 3.4. 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 3.5. section x2. 3.6. Sleeve gastrectomy for morbid obesity in 2018 (Her weight was 228 pounds) 3.7. Cholecystectomy in July 2019. (All of these operations were done in [place] or other states) 4.Abdominal pain and nausea with meals of unknown etiology with symptoms typical for partial small bowel obstruction 5. Possible Renee pouch afferent bowel stricture/angulation was ruled out 6. Cystic pelvic mass rule out neoplasm versus loculated postoperative fluid from multiply operation versus lymphocele 7. Malnutrition 8. s/p 08/29 Renee continent ileostomy pouch endoscopy. 9. s/p 09/03 Pouchoscopy. Discharge Medications Continued Medications: Clonazepam (Clonazepam) 1 Mg Tablet 1 MG PO BEDTIME for anxiety, TAB Progesterone,Micronized (Progesterone) 200 Mg Capsule 200 MG PO BEDTIME for hormone replacement, CAP Suvorexant (Belsomra) 15 Mg Tablet 15 MG PO BEDTIME for insomnia, TAB Thyroid* ([place] Thyroid*) 30 Mg Tablet 60 MG ORAL BEFORE BREAKFAST for thyroid replacement , TAB 0 Refills Discharge Condition Upon Discharge: stable Discharge Vital Signs Last Vital Signs Date Time Temp Pulse Resp B/P (MAP) Pulse Ox O2 Delivery O2 Flow Rate FiO2 09/08/20 08:00 97.4 101 15 134/85 (101) 98 09/08/20 07:34 Room Air 09/04/20 09:52 21 Discharge Disposition Patient was discharged home Discharge Instructions Discharge Instructions Special Instructions I have been assigned to complete a D/C Summary on this account. I was not involved in the patient management Dian Berkowitz NP Sep 13, 2020 12:42
== END 2020-09-08 09:30 | disposition home or self-care (01) | DRG 389 ==
LOC: EMR 10:47 → 3E 11:06 → EDBEDREQ 11:26 → 4E 09-04 15:00
PROC: 02HV33Z Insertion of Infusion Device into Superior Vena Cava, Percutaneous Approach (ICD-10-PCS; principal; 2020-08-29 13:40)
PROC: 0D9880Z Drainage of Small Intestine with Drainage Device, Via Natural or Artificial Opening Endoscopic (ICD-10-PCS; principal; 2020-08-29 13:40)
PROC: 0DJD8ZZ Inspection of Lower Intestinal Tract, Via Natural or Artificial Opening Endoscopic (ICD-10-PCS; 2020-09-03)
DX: K56.51 Intestinal adhesions [bands], with partial obstruction (principal); K91.850 Pouchitis; Z93.2 Ileostomy status; Z87.19 Personal history of other diseases of the digestive system; Z98.84 Bariatric surgery status; Z90.710 Acquired absence of both cervix and uterus; Z88.6 Allergy status to analgesic agent; Z88.0 Allergy status to penicillin
CPT/HCPCS: 36415; 36573; 71045; 74018; 74177; 74270; 76700; 76830; 76856; 76937; 80053; 81003; 82607; 82728; 82746; 82962; 83540; 83550; 83690; 83735; 84100; 85025; 85610; 85730; 86850; 86900; 86901; 93005; 94003; 94150; 96360; 99285; J1815; J2250; J2405; J7030; U0002